=== PATIENT | female | born 1970 | race Hispanic/Latino ===

== ENCOUNTER 2017-08-28 13:47 | Inpatient (IN) | payer SELFPAY ==
[~2017-08-28] VITALS: Ht 167.6 cm; Wt 97.7 kg
[2017-08-28 14:26] LABS: BASOPHILS % (AUTO) 0.6 % (0.0-5.0); EOSINOPHILS % (AUTO) 1.4 % (0.0-8.0); HEMATOCRIT 41.1 % (36-48); LYMPHOCYTES % (AUTO) 34.2 % (21.0-51.0); MEAN CORPUSCULAR HEMOGLOBIN 28.4 pg (27.0-33.0); MEAN CORPUSCULAR HGB CONC 33.9 g/dL (32.0-36.0); MEAN CORPUSCULAR VOLUME 83.9 fL (79-99); MONOCYTES % (AUTO) 5.9 % (3.0-13.0); NEUTROPHILS % (AUTO) 57.9 % (40.0-77.0); PLATELET COUNT (AUTO) 228 K/uL (130-400); RED BLOOD CELL COUNT(AUTO) 4.89 MIL/uL (4.00-5.50); RED CELL DISTRIBUTION WIDTH 13.4 % (11.0-15.5)
[2017-08-28 14:42] LABS: ALBUMIN 3.1 g/dL (3.5-5.0); BILIRUBIN,TOTAL 0.7 mg/dL (0.2-1.0); CREATININE 0.8 mg/dL (0.5-1.5); POTASSIUM 4.1 mmol/L (3.5-5.1); TOTAL PROTEIN, SERUM 6.6 g/dL (6.0-8.3)
[2017-08-28] MEDS ORDERED: ASPIRIN 325 MG TABLET ONE (14:43)
[2017-08-28 14:50] LABS: CREATINE KINASE MB < 0.5 ng/mL (0.5-3.6); CREATINE KINASE, TOTAL 40 U/L (21-232)
[2017-08-28] MEDS ORDERED: INSULIN HUMULIN R 100 UNIT/ML 3ML ONE ×2 (16:00→16:06)
[2017-08-28 18:50] VITALS: BP 112/73
[2017-08-28 18:51] VITALS: BP 112/73
[2017-08-28] MEDS ORDERED: ONDANSETRON HCL 4 MG/2 ML VIAL ONE (19:37)
[2017-08-28] MEDS ORDERED: SODIUM CHLORIDE 0.9% 1000ML 1,000 ML IV ONE (19:39)
[2017-08-28] MEDS: SODIUM CHLORIDE 0.9% 1000ML 1,000 ML IV SCH (21:00)
[2017-08-28] MEDS: FAMOTIDINE/PF 20 MG/2 ML VIAL IV SCH (21:22)
[2017-08-28 23:00] VITALS: BP 101/70
[2017-08-28] MEDS ORDERED: GLUCAGON 1MG KIT 1 MG ML IM PRN (23:00)
[2017-08-28] MEDS ORDERED: DEXTROSE 50%-WATER 50 ML DISP.SYRIN IV PRN (23:00)
[2017-08-28] MEDS ORDERED: PROMETHAZINE HCL 25 MG/ML 1ML AMPULE IM PRN (23:00)
[2017-08-29] MEDS: INSULIN HUMULIN R 100 UNIT/ML 3ML SQ SCH ×5 (00:08→21:07)
[2017-08-29 03:00] VITALS: BP 99/65
[2017-08-29] MEDS: SODIUM CHLORIDE 0.9% 1000ML 1,000 ML IV SCH ×3 (03:36→20:21)
[2017-08-29 04:01] LABS: HEMATOCRIT 35.4 % (36-48); MEAN CORPUSCULAR HEMOGLOBIN 29.9 pg (27.0-33.0); MEAN CORPUSCULAR HGB CONC 36.1 g/dL (32.0-36.0); MEAN CORPUSCULAR VOLUME 82.8 fL (79-99); PLATELET COUNT (AUTO) 237 K/uL (130-400); RED BLOOD CELL COUNT(AUTO) 4.27 MIL/uL (4.00-5.50); RED CELL DISTRIBUTION WIDTH 13.4 % (11.0-15.5); WHITE BLOOD COUNT (AUTO) 6.8 K/uL (4.8-10.8)
[2017-08-29 04:07] LABS: ALBUMIN 2.6 g/dL (3.5-5.0); BILIRUBIN,DIRECT 0.1 mg/dL (0.0-0.3); BILIRUBIN,TOTAL 0.6 mg/dL (0.2-1.0); CREATININE 0.6 mg/dL (0.5-1.5); POTASSIUM 3.6 mmol/L (3.5-5.1); TOTAL PROTEIN, SERUM 5.7 g/dL (6.0-8.3)
[2017-08-29 08:00] VITALS: BP 91/57
[2017-08-29] MEDS: FAMOTIDINE/PF 20 MG/2 ML VIAL IV SCH ×2 (08:50→20:21)
[2017-08-29 11:02] VITALS: BP 101/62
[2017-08-29] MEDS: ONDANSETRON HCL MDV 20ML 2 MG/ML VIAL IVP PRN (13:50)
[2017-08-29] MEDS: MORPHINE SULFATE 4 MG/1ML SYG IVP PRN (13:51)
[2017-08-29 16:09] VITALS: BP 115/68
[2017-08-29] MEDS ORDERED: ACETAMINOPHEN 325 MG TAB ONE (18:36)
[2017-08-29] MEDS ORDERED: ACETAMINOPHEN 325 MG TAB PO PRN (18:45)
[2017-08-29 19:00] VITALS: BP 111/73
[2017-08-29 23:29] VITALS: BP 108/66
[2017-08-30 03:59] VITALS: BP 120/75
[2017-08-30] MEDS: SODIUM CHLORIDE 0.9% 1000ML 1,000 ML IV SCH ×2 (04:53→13:10)
[2017-08-30] MEDS: INSULIN HUMULIN R 100 UNIT/ML 3ML SQ SCH ×3 (05:54→16:45)
[2017-08-30 07:49] VITALS: BP 129/70
[2017-08-30] MEDS: FAMOTIDINE/PF 20 MG/2 ML VIAL IV SCH ×2 (09:37→20:05)
[2017-08-30 11:46] VITALS: BP 128/80
[2017-08-30] MEDS: ONDANSETRON HCL MDV 20ML 2 MG/ML VIAL IVP PRN ×2 (13:11→20:08)
[2017-08-30] MEDS: MORPHINE SULFATE 4 MG/1ML SYG IVP PRN ×2 (13:11→20:17)
[2017-08-30 13:44] LABS: AMYLASE 20 U/L (25-115); LIPASE 108 U/L (114-286)
[2017-08-30 15:57] VITALS: BP 141/80
[2017-08-30 20:00] VITALS: BP 130/72
[2017-08-31] VITALS: BP 128/74
[2017-08-31] MEDS: SODIUM CHLORIDE 0.9% 1000ML 1,000 ML IV SCH ×2 (00:24→08:57)
[2017-08-31 04:00] VITALS: BP 124/78
[2017-08-31 04:11] LABS: BASOPHILS % (AUTO) 0.4 % (0.0-5.0); EOSINOPHILS % (AUTO) 1.7 % (0.0-8.0); HEMATOCRIT 35.3 % (36-48); LYMPHOCYTES % (AUTO) 45.4 % (21.0-51.0); MEAN CORPUSCULAR HGB CONC 36.4 g/dL (32.0-36.0); MEAN CORPUSCULAR VOLUME 82.4 fL (79-99); MONOCYTES % (AUTO) 7.3 % (3.0-13.0); NEUTROPHILS % (AUTO) 45.2 % (40.0-77.0); PLATELET COUNT (AUTO) 237 K/uL (130-400); RED BLOOD CELL COUNT(AUTO) 4.28 MIL/uL (4.00-5.50); RED CELL DISTRIBUTION WIDTH 13.6 % (11.0-15.5)
[2017-08-31 04:36] LABS: CREATININE 0.7 mg/dL (0.5-1.5); POTASSIUM 3.6 mmol/L (3.5-5.1)
[2017-08-31] MEDS: INSULIN HUMULIN R 100 UNIT/ML 3ML SQ SCH ×4 (06:00→16:45)
[2017-08-31 08:00] VITALS: BP 110/72
[2017-08-31] MEDS: FAMOTIDINE/PF 20 MG/2 ML VIAL IV SCH (08:57)
[2017-08-31 11:37] VITALS: BP 118/77
[2017-08-31 16:00] VITALS: BP 148/78
== END 2017-08-31 18:45 | disposition home or self-care (01) | DRG 440 ==
LOC: EDH 13:47 → EDHIP 13:48 → 3BH 18:38
PROVIDERS: ADMIT Family Medicine; ATTEND Family Medicine
DX: K85.90 Acute pancreatitis without necrosis or infection, unspecified (principal); K76.0 Fatty (change of) liver, not elsewhere classified; E11.9 Type 2 diabetes mellitus without complications; E78.5 Hyperlipidemia, unspecified; Z79.82 Long term (current) use of aspirin; F41.1 Generalized anxiety disorder; Z82.49 Family history of ischemic heart disease and other diseases of the circulatory system; Z90.710 Acquired absence of both cervix and uterus; Z79.84 Long term (current) use of oral hypoglycemic drugs; Z90.49 Acquired absence of other specified parts of digestive tract
CPT/HCPCS: 36415; 71045; 74176; 80048; 80053; 80076; 82150; 82550; 82553; 82948; 83690; 84478; 84484; 85025; 85027; 93005; J1815; J2270; J2405; J2550; J3490; J7030

== ENCOUNTER 2018-05-01 14:25 | Emergency (ER) | payer OTHER ==
[2018-05-01] MEDS ORDERED: SODIUM CHLORIDE 0.9% 1000ML 1,000 ML IV ONE (15:23)
[2018-05-01] MEDS ORDERED: ONDANSETRON HCL 4 MG/2 ML VIAL ONE (15:23)
[2018-05-01] MEDS ORDERED: INSULIN HUMULIN R 100 UNIT/ML 3ML ONE (15:24)
[2018-05-01 15:26] LABS: BASOPHILS % (AUTO) 0.5 % (0.0-5.0); EOSINOPHILS % (AUTO) 1.4 % (0.0-8.0); HEMATOCRIT 42.9 % (36-48); MEAN CORPUSCULAR HEMOGLOBIN 28.2 pg (27.0-33.0); MEAN CORPUSCULAR HGB CONC 33.9 g/dL (32.0-36.0); MEAN CORPUSCULAR VOLUME 83.2 fL (79-99); MONOCYTES % (AUTO) 3.5 % (3.0-13.0); NEUTROPHILS % (AUTO) 51.6 % (40.0-77.0); NUCLEATED RED BLOOD CELLS 0.1 % (0.0-0.19); PLATELET COUNT (AUTO) 233 K/uL (130-400); RED BLOOD CELL COUNT(AUTO) 5.15 MIL/uL (4.00-5.50); RED CELL DISTRIBUTION WIDTH 13.5 % (11.0-15.5); WHITE BLOOD COUNT (AUTO) 6.3 K/uL (4.8-10.8)
[2018-05-01 15:38] LABS: CREATININE 0.7 mg/dL (0.5-1.5); POTASSIUM 4.2 mmol/L (3.5-5.1)
[2018-05-01 15:47] LABS: ALBUMIN 3.1 g/dL (3.5-5.0); BILIRUBIN,TOTAL 0.9 mg/dL (0.2-1.0); TOTAL PROTEIN, SERUM 6.7 g/dL (6.0-8.3)
[2018-05-01 16:36] LABS: APPEARANCE,URINE Clear (CLEAR); BILIRUBIN,URINE Negative (NEGATIVE); COLOR,URINE Yellow (YELLOW); GLUCOSE, URINE (UA) >=1000 mg/dL (NEGATIVE); KETONES,URINE Negative (NEGATIVE); LEUKOCYTE ESTERASE ,URINE Negative (NEGATIVE); NITRATE,URINE Positive (NEGATIVE); OCCULT BLOOD,URINE Negative (NEGATIVE); PROTEIN,URINE Negative (NEGATIVE); UROBILINOGEN,URINE 0.2 mg/dL (0.2-1.0)
[2018-05-01 17:12] LABS: BACTERIA,URINE Few /HPF (None Seen)
[2018-05-01 17:13] LABS: SQUAMOUS EPITHELIAL CELL,UR Moderate /HPF (0-2)
== END 2018-05-01 17:04 | disposition home or self-care (01) ==
LOC: EDH 14:25
DX: K52.9 Noninfective gastroenteritis and colitis, unspecified (principal); E11.65 Type 2 diabetes mellitus with hyperglycemia; Z90.710 Acquired absence of both cervix and uterus; Z90.49 Acquired absence of other specified parts of digestive tract
CPT/HCPCS: 36415; 80053; 81001; 82009; 82948 ×2; 83690; 84702; 85025; 87077; 87088; 87186; 87804 ×2; 96361; 96374; 96375; 99284; J1815; J2405; J7030

== ENCOUNTER → 2018-07-26 | Outpatient (CLI) | payer OTHER | END | disposition home or self-care (01) | LOC: OIH 14:46 | PROVIDERS: ATTEND Internal Medicine | DX: S42.91XA Fracture of right shoulder girdle, part unspecified, initial encounter for closed fracture (principal); M54.2 Cervicalgia; X58.XXXA Exposure to other specified factors, initial encounter; Y93.89 Activity, other specified; Y92.89 Other specified places as the place of occurrence of the external cause; Y99.8 Other external cause status | CPT/HCPCS: 72040; 73030 ==

== ENCOUNTER 2019-01-01 21:22 | Emergency (ER) | payer OTHER ==
[2019-01-01] MEDS ORDERED: SODIUM CHLORIDE 0.9% 1000ML 1,000 ML IV ONE ×2 (22:11→23:00)
[2019-01-01] MEDS ORDERED: ONDANSETRON HCL 4 MG/2 ML VIAL ONE (22:13)
[2019-01-01] MEDS ORDERED: KETOROLAC TROMETHAMINE 30MG/ML ONE (22:14)
[2019-01-01 22:22] LABS: BASOPHILS % (AUTO) 0.8 % (0.0-5.0); EOSINOPHILS % (AUTO) 2.1 % (0.0-8.0); HEMATOCRIT 41.7 % (36-48); LYMPHOCYTES % (AUTO) 37.1 % (21.0-51.0); MEAN CORPUSCULAR HEMOGLOBIN 28.1 pg (27.0-33.0); MEAN CORPUSCULAR HGB CONC 33.9 g/dL (32.0-36.0); MONOCYTES % (AUTO) 5.5 % (3.0-13.0); NEUTROPHILS % (AUTO) 54.5 % (40.0-77.0); PLATELET COUNT (AUTO) 270 K/uL (130-400); RED BLOOD CELL COUNT(AUTO) 5.02 MIL/uL (4.00-5.50); RED CELL DISTRIBUTION WIDTH 13.4 % (11.0-15.5); WHITE BLOOD COUNT (AUTO) 7.3 K/uL (4.8-10.8)
[2019-01-01 22:26] LABS: BILIRUBIN,URINE Negative (NEGATIVE); COLOR,URINE Yellow (YELLOW); GLUCOSE, URINE (UA) >=1000 mg/dL (NEGATIVE); KETONES,URINE Negative (NEGATIVE); LEUKOCYTE ESTERASE ,URINE Negative (NEGATIVE); NITRATE,URINE Negative (NEGATIVE); OCCULT BLOOD,URINE Negative (NEGATIVE); PH,URINE 5.5 (5.0-8.0); PROTEIN,URINE Negative (NEGATIVE); UROBILINOGEN,URINE 0.2 mg/dL (0.2-1.0)
[2019-01-01 22:33] LABS: APPEARANCE,URINE SLIGHTLY CLOUDY (CLEAR)
[2019-01-01 22:39] LABS: POTASSIUM 3.9 mmol/L (3.5-5.1)
[2019-01-01 22:40] LABS: BACTERIA,URINE Rare /HPF (None Seen); RBC,URINE 0-1 /HPF (0-1); WBC,URINE 0-1 /HPF (0-1); YEAST,URINE BUDDING Moderate /HPF (None Seen)
[2019-01-01 22:46] LABS: ALBUMIN 3.4 g/dL (3.5-5.0); BILIRUBIN,TOTAL 0.6 mg/dL (0.2-1.0); TOTAL PROTEIN, SERUM 7.2 g/dL (6.0-8.3)
[2019-01-01] MEDS ORDERED: INSULIN HUMULIN R 100 UNIT/ML 3ML ONE (23:03)
[2019-01-01] MEDS ORDERED: DiphenhydrAMINE HCL 50 MG/ML VIAL ONE (23:51)
== END 2019-01-02 00:12 | disposition home or self-care (01) ==
LOC: EDH 21:22
DX: E11.65 Type 2 diabetes mellitus with hyperglycemia (principal); K02.9 Dental caries, unspecified; Z90.49 Acquired absence of other specified parts of digestive tract; Z90.710 Acquired absence of both cervix and uterus
CPT/HCPCS: 36415; 80053; 81001; 82010; 82948 ×2; 83690; 85025; 87804 ×2; 96361; 96374; 96375; 99284; J1200; J1815; J1885; J2405; J7030 ×2

== ENCOUNTER 2019-03-18 02:45 | Emergency (ER) | payer OTHER ==
[2019-03-18] MEDS ORDERED: DEXAMETHASONE 4 MG TAB ONE (03:51)
[2019-03-18] MEDS ORDERED: MAG HYDROX/AL HYDROX/SIMETH ES 30 ML SUSP UDCUP ONE (03:51)
[2019-03-18] MEDS ORDERED: LIDOCAINE HCL 2% VISCOUS 15 ML UDCUP ONE (03:51)
[2019-03-18] MEDS ORDERED: ACETAMINOPHEN EXTRA STRENGTH 500 MG TABLET ONE (03:52)
[2019-03-18] MEDS ORDERED: IBUPROFEN 200 MG TAB ONE (03:52)
== END 2019-03-18 04:05 | disposition home or self-care (01) ==
LOC: EDH 02:45
DX: B34.9 Viral infection, unspecified (principal); J02.9 Acute pharyngitis, unspecified; E11.9 Type 2 diabetes mellitus without complications; Z90.49 Acquired absence of other specified parts of digestive tract; Z90.710 Acquired absence of both cervix and uterus
CPT/HCPCS: 99284; J8540

== ENCOUNTER 2019-07-14 18:49 | Inpatient (IN) | payer OTHER ==
[~2019-07-14] VITALS: Ht 157.5 cm; Wt 82.3 kg
[2019-07-14] MEDS ORDERED: ONDANSETRON HCL 4 MG/2 ML VIAL ONE (20:35)
[2019-07-14] MEDS ORDERED: LIDOCAINE HCL 2% 20ML ONE (20:35)
[2019-07-14] MEDS ORDERED: ZOSYN 3.375GM+NS 50ML 50 ML IV ONE (20:35)
[2019-07-14] MEDS ORDERED: SODIUM CHLORIDE 0.9% 1000ML 3,000 ML IV ONE (20:36)
[2019-07-14] MEDS ORDERED: MORPHINE SULFATE 4 MG/1ML SYG ONE ×2 (20:36→22:42)
[2019-07-14 20:53] LABS: BASOPHILS % (AUTO) 0.4 % (0.0-5.0); EOSINOPHILS % (AUTO) 1.3 % (0.0-8.0); HEMATOCRIT 38.1 % (36-48); LYMPHOCYTES % (AUTO) 21.9 % (21.0-51.0); MEAN CORPUSCULAR HEMOGLOBIN 27.7 pg (27.0-33.0); MEAN CORPUSCULAR HGB CONC 33.9 g/dL (32.0-36.0); MEAN CORPUSCULAR VOLUME 81.8 fL (79-99); MONOCYTES % (AUTO) 7.5 % (3.0-13.0); NEUTROPHILS % (AUTO) 68.5 % (40.0-77.0); PLATELET COUNT (AUTO) 253 K/uL (130-400); RED BLOOD CELL COUNT(AUTO) 4.66 MIL/uL (4.00-5.50); RED CELL DISTRIBUTION WIDTH 12.2 % (11.0-15.5); WHITE BLOOD COUNT (AUTO) 9.3 K/uL (4.8-10.8)
[2019-07-14] MEDS ORDERED: VANCOMYCIN 1GM+NS 250ML 250 ML IV ONE (20:59)
[2019-07-14 21:12] LABS: APPEARANCE,URINE Cloudy (CLEAR); BILIRUBIN,URINE Negative (NEGATIVE); COLOR,URINE Yellow (YELLOW); GLUCOSE, URINE (UA) >=1000 mg/dL (NEGATIVE); KETONES,URINE 15 mg/dL (NEGATIVE); LEUKOCYTE ESTERASE ,URINE Trace (NEGATIVE); NITRATE,URINE Negative (NEGATIVE); OCCULT BLOOD,URINE Negative (NEGATIVE); PROTEIN,URINE Negative (NEGATIVE)
[2019-07-14 21:19] LABS: INR 0.95 (0.85-1.15); PARTIAL THROMBOPLASTIN TIME 29.9 SEC (26.3-35.5); PROTHROMBIN TIME 10.3 SEC (9.6-11.6)
[2019-07-14] MEDS ORDERED: LIDOCAINE 1%-EPI 1:100,000 20 ML VIAL IJ ONE (21:23)
[2019-07-14 21:29] LABS: ALANINE AMINOTRANSFERASE 14 U/L (12-78); ALBUMIN 2.8 g/dL (3.5-5.0); ASPARTATE AMINOTRANSFERASE 11 U/L (10-37); BILIRUBIN,TOTAL 1.3 mg/dL (0.2-1.0); CHLORIDE 98 mmol/L (101-111); CREATINE KINASE, TOTAL 46 U/L (21-232); CREATININE 0.8 mg/dL (0.5-1.5); GLOMERULAR FILTR. RATE CALC 81 mL/min (>60); GLUCOSE,RANDOM 253 mg/dL (70-105); MYOGLOBIN 23 ng/mL (10-92); POTASSIUM 3.8 mmol/L (3.5-5.1); SODIUM SERUM 133 mmol/L (136-145); TOTAL PROTEIN, SERUM 7.1 g/dL (6.0-8.3); TROPONIN I < 0.04 ng/mL (0.00-0.06); UREA NITROGEN, BLOOD 11 mg/dL (7-18)
[2019-07-14 21:42] LABS: CARBON DIOXIDE 22 mmol/L (21-32)
[2019-07-14 21:50] LABS: BACTERIA,URINE Few /HPF (None Seen); RBC,URINE None Seen /HPF (0-1); YEAST,URINE BUDDING Few /HPF (None Seen)
[2019-07-15] MEDS ORDERED: HYDRALAZINE HCL 20 MG/ML VIAL IV PRN (00:30)
[2019-07-15] MEDS ORDERED: DIPHENHYDRAMINE HCL 25 MG CAPSULE PO PRN (00:30)
[2019-07-15] MEDS ORDERED: MORPHINE SULFATE 4 MG/1ML SYG IV PRN (00:30)
[2019-07-15] MEDS ORDERED: GUAIFENESIN-DM 200/20 MG 10 ML PO PRN (00:30)
[2019-07-15] MEDS ORDERED: POTASSIUM CHLORIDE 10% ELIXIR 20 MEQ/15 ML UDCUP PO PRN (00:30)
[2019-07-15] MEDS ORDERED: POTASSIUM CHLORIDE 20 MEQ ERTAB PO PRN (00:30)
[2019-07-15] MEDS ORDERED: ZOLPIDEM TARTRATE 5 MG TAB PO PRN (00:30)
[2019-07-15] MEDS ORDERED: MAG HYDROX/AL HYDROX/SIMETH ES 30 ML SUSP UDCUP PO PRN (00:30)
[2019-07-15] MEDS ORDERED: VANCOMYCIN PROTOCOL PER PHARMACY IV PRN (00:30)
[2019-07-15] MEDS ORDERED: LACTULOSE 20 GM/30 ML UDCUP PO PRN (00:30)
[2019-07-15] MEDS ORDERED: LIDOCAINE HCL-MPF 1% 2ML VIAL IJ PRN (00:30)
[2019-07-15] MEDS ORDERED: ACETAMINOPHEN 325 MG TAB PO PRN ×2 (00:30)
[2019-07-15] MEDS ORDERED: POTASSIUM CHLORIDE 20MEQ/100ML 100 ML IV PRN (00:30)
[2019-07-15] MEDS ORDERED: MAGNESIUM 2GM PREMIX 50ML 50 ML IV PRN (00:30)
[2019-07-15] MEDS ORDERED: DiphenhydrAMINE HCL 50 MG/ML VIAL IV PRN (00:30)
[2019-07-15] MEDS ORDERED: ONDANSETRON HCL 4 MG/2 ML VIAL IV PRN (00:30)
[2019-07-15] MEDS ORDERED: ACETAMINOPHEN-CODEINE 300/30MG TAB PO PRN (00:30)
[2019-07-15] MEDS: SODIUM CHLORIDE 0.9% 1000ML 1,000 ML IV SCH ×3 (00:54→20:54)
[2019-07-15] MEDS ORDERED: VANCOMYCIN PROTOCOL PER PHARMACY IV SCH (01:00)
[2019-07-15] MEDS ORDERED: DEXTROSE 50%-WATER 50 ML DISP.SYRIN IV PRN (01:00)
[2019-07-15] MEDS ORDERED: NITROGLYCERIN 0.4 MG SL TAB SL PRN (01:00)
[2019-07-15] MEDS: INSULIN HUMULIN R 100 UNIT/ML 3ML SQ SCH ×5 (01:00→21:00)
[2019-07-15] MEDS ORDERED: GLUCAGON 1MG KIT 1 MG ML IM PRN (01:00)
[2019-07-15] MEDS ORDERED: HYDROCODONE/ACETAMINOPHEN 5/325 MG TAB PO PRN ×2 (01:00)
[2019-07-15] MEDS ORDERED: MORPHINE SULFATE 4 MG/1ML SYG ONE (02:14)
[2019-07-15 03:14] LABS: HEMOGLOBIN A1C 9.5 % (4.0-6.0)
[2019-07-15] MEDS ORDERED: ZOSYN 3.375GM+NS 50ML 50 ML IV ONE (04:22)
[2019-07-15] MEDS ORDERED: ACETAMINOPHEN 325 MG TAB ONE (04:22)
[2019-07-15] MEDS ORDERED: ZOSYN 3.375GM+NS 50ML 50 ML IV SCH (05:00)
[2019-07-15] MEDS: ZOSYN 3.375GM+NS 50ML 50 ML IV SCH ×3 (05:00→23:29)
[2019-07-15] MEDS ORDERED: IBUPROFEN 400 MG TABLET ONE (05:23)
[2019-07-15] MEDS: IBUPROFEN 800 MG TAB PO SCH (05:30)
[2019-07-15] MEDS ORDERED: INSULIN HUMULIN R 100 UNIT/ML 3ML ONE (05:48)
[2019-07-15 06:05] LABS: HEMATOCRIT 35.1 % (36-48); MEAN CORPUSCULAR HEMOGLOBIN 27.7 pg (27.0-33.0); MEAN CORPUSCULAR VOLUME 83.8 fL (79-99); PLATELET COUNT (AUTO) 229 K/uL (130-400); RED BLOOD CELL COUNT(AUTO) 4.19 MIL/uL (4.00-5.50); RED CELL DISTRIBUTION WIDTH 12.2 % (11.0-15.5); WHITE BLOOD COUNT (AUTO) 9.4 K/uL (4.8-10.8)
[2019-07-15 06:27] LABS: ALBUMIN 2.3 g/dL (3.5-5.0); BILIRUBIN,TOTAL 1.2 mg/dL (0.2-1.0); CREATININE 0.7 mg/dL (0.5-1.5); MAGNESIUM 1.9 mg/dL (1.80-2.40); POTASSIUM 4.1 mmol/L (3.5-5.1); TOTAL PROTEIN, SERUM 5.8 g/dL (6.0-8.3)
[2019-07-15 07:18] LABS: BASOPHILS % (MANUAL) 2 % (0-2); LYMPHOCYTES % (MANUAL) 26 % (22-44); MAN.DIFF COMMENT-IMPRESSION MANUAL DIFFERENTIAL; MONOCYTES % (MANUAL) 2 % (2-9); PLATELET MORPHOLOGY COMMENT ADEQUATE; SEGMENTED NEUTROPHILS % 70 % (40-70)
[2019-07-15] MEDS ORDERED: INSULIN HUMULIN R 100 UNIT/ML 3ML SQ SCH (07:30)
[2019-07-15 08:00] VITALS: BP 97/56
[2019-07-15] MEDS ORDERED: DIATR MEGLU/DIATRIZOATE SODIUM 30 ML BOTTLE ONE (08:31)
[2019-07-15] MEDS: FAMOTIDINE/PF 20 MG/2 ML VIAL IV SCH ×2 (08:56→23:29)
[2019-07-15] MEDS: ENOXAPARIN SODIUM 30 MG/0.3 ML SQ SCH (08:56)
[2019-07-15] MEDS: MORPHINE SULFATE 4 MG/1ML SYG IV PRN (08:57)
[2019-07-15] MEDS: ONDANSETRON HCL 4 MG/2 ML VIAL IV PRN (08:57)
[2019-07-15] MEDS ORDERED: IOHEXOL-350 75 ML VIAL IV ONE (10:18)
[2019-07-15] MEDS: VANCOMYCIN 1.5 GM in SODIUM CHLORIDE 0.9% 250 ML IV SCH ×2 (10:34→23:28)
[2019-07-15] MEDS ORDERED: COMPOUND IV REFRIGERATED 1 EACH IVSOLN MISC PRN (10:45)
[2019-07-15 11:00] VITALS: BP 86/48
--- NOTE | 2019-07-15 11:20 | NUR ---
Notified Dr. Camarillo of patient's inability to drink oral contrast for CT Scan Abd/Pelvis due to nausea, vomiting. Zofran administered, however patient continues with nausea. Reported BP of 86/48, 67 hr, T98.7, patient states, feeling, "not herself", with weakness and pale skin. Received telephone order for [address] Camarillo, hold off on vancomycin administration, liver enzymes to be checked at noon. IV fluids infusing, 10 mL yellow-orange emesis to emesis bag, bed low, locked, call fang within reach. Notified CT Scan of emesis with oral contrast. Tech to bring patient down to CT Scan.
[2019-07-15 12:16] LABS: BASOPHILS % (AUTO) 0.5 % (0.0-5.0); EOSINOPHILS % (AUTO) 1.5 % (0.0-8.0); HEMATOCRIT 34.1 % (36-48); LYMPHOCYTES % (AUTO) 20.6 % (21.0-51.0); MEAN CORPUSCULAR HEMOGLOBIN 27.7 pg (27.0-33.0); MEAN CORPUSCULAR HGB CONC 33.1 g/dL (32.0-36.0); MEAN CORPUSCULAR VOLUME 83.6 fL (79-99); MONOCYTES % (AUTO) 6.8 % (3.0-13.0); NEUTROPHILS % (AUTO) 70.4 % (40.0-77.0); PLATELET COUNT (AUTO) 222 K/uL (130-400); RED BLOOD CELL COUNT(AUTO) 4.08 MIL/uL (4.00-5.50); RED CELL DISTRIBUTION WIDTH 12.2 % (11.0-15.5); WHITE BLOOD COUNT (AUTO) 8.2 K/uL (4.8-10.8)
[2019-07-15 12:56] LABS: ALBUMIN 2.1 g/dL (3.5-5.0); BILIRUBIN,TOTAL 1.3 mg/dL (0.2-1.0); CREATININE 0.7 mg/dL (0.5-1.5); POTASSIUM 3.3 mmol/L (3.5-5.1); TOTAL PROTEIN, SERUM 5.5 g/dL (6.0-8.3)
--- NOTE | 2019-07-15 13:00 | NUR ---
BP 93/60, patient states feels better, not as week and nausea has dissipated. Reminded patient to call for assistance if needs to get out of bed. Patient verbalized understanding.
--- NOTE | 2019-07-15 14:00 | NUR ---
floater in both eyes Addendum: 07/15/19 at 1416 by YANET FRANCO RN RN Amended: Links added.
--- NOTE | 2019-07-15 14:02 | NUR ---
recent yeast infections Addendum: 07/15/19 at 1416 by YANET FRANCO RN RN Amended: Links added.
[2019-07-15] MEDS ORDERED: METF500S7 PO (14:22)
[2019-07-15] MEDS ORDERED: METF-526 PO (14:23)
--- NOTE | 2019-07-15 14:28 | NUR ---
[facility] CM met with pt discussed dc plans. Pt is independent prior to admission, lives at home with parents. Denies any equipments/services. Feels safe to go back home, still drives and works. Pt is a selfpay, [facility] assisting, given Zutux packet. DC plan to home once stable. CM to cont to follow up. Addendum: 07/15/19 at 1429 by LULU SAMUELS LVN CM Amended: Links added. Addendum: 07/15/19 at 1429 by LULU SAMUELS LVN CM Amended: Links added.
[2019-07-15 16:00] VITALS: BP 92/58
[2019-07-15 20:37] VITALS: BP 95/61
[2019-07-15 23:48] VITALS: BP 107/56
[2019-07-16] VITALS (7 sets, daily range): BP systolic 93–133; BP diastolic 53–76
[2019-07-16] MEDS: DIPHENHYDRAMINE HCL 25 MG CAPSULE PO PRN ×2 (00:24→20:17)
[2019-07-16] MEDS: ZOSYN 3.375GM+NS 50ML 50 ML IV SCH ×3 (04:23→21:00)
[2019-07-16 05:21] LABS: BASOPHILS % (AUTO) 0.5 % (0.0-5.0); EOSINOPHILS % (AUTO) 3.1 % (0.0-8.0); HEMATOCRIT 30.6 % (36-48); LYMPHOCYTES % (AUTO) 34.5 % (21.0-51.0); MEAN CORPUSCULAR HEMOGLOBIN 27.6 pg (27.0-33.0); MEAN CORPUSCULAR VOLUME 83.6 fL (79-99); MONOCYTES % (AUTO) 6.3 % (3.0-13.0); NEUTROPHILS % (AUTO) 55.1 % (40.0-77.0); PLATELET COUNT (AUTO) 229 K/uL (130-400); RED BLOOD CELL COUNT(AUTO) 3.66 MIL/uL (4.00-5.50); RED CELL DISTRIBUTION WIDTH 12.3 % (11.0-15.5); WHITE BLOOD COUNT (AUTO) 6.1 K/uL (4.8-10.8)
[2019-07-16 05:47] LABS: BILIRUBIN,TOTAL 0.5 mg/dL (0.2-1.0); CREATININE 0.8 mg/dL (0.5-1.5); POTASSIUM 3.1 mmol/L (3.5-5.1); TOTAL PROTEIN, SERUM 5.4 g/dL (6.0-8.3)
[2019-07-16] MEDS: SODIUM CHLORIDE 0.9% 1000ML 1,000 ML IV SCH ×2 (05:58→16:54)
[2019-07-16] MEDS: IBUPROFEN 800 MG TAB PO SCH (05:58)
[2019-07-16] MEDS: INSULIN HUMULIN R 100 UNIT/ML 3ML SQ SCH ×4 (05:59→20:30)
[2019-07-16] MEDS: FAMOTIDINE/PF 20 MG/2 ML VIAL IV SCH ×2 (08:47→20:16)
[2019-07-16] MEDS: VANCOMYCIN 1.5 GM in SODIUM CHLORIDE 0.9% 250 ML IV SCH ×2 (08:49→20:16)
[2019-07-16] MEDS ORDERED: POTASSIUM CHLORIDE 10% ELIXIR 20 MEQ/15 ML UDCUP PO PRN (10:30)
[2019-07-16] MEDS ORDERED: LIDOCAINE HCL-MPF 1% 2ML VIAL IV PRN (10:30)
[2019-07-16] MEDS ORDERED: POTASSIUM CHLORIDE 20MEQ/100ML 100 ML IV PRN (10:30)
[2019-07-16] MEDS: ACETAMINOPHEN 325 MG TAB PO PRN (13:08)
[2019-07-16] MEDS: ENOXAPARIN SODIUM 30 MG/0.3 ML SQ SCH (13:09)
[2019-07-16] MEDS: ONDANSETRON HCL 4 MG/2 ML VIAL IV PRN ×2 (15:45→20:17)
[2019-07-16] MEDS: MORPHINE SULFATE 4 MG/1ML SYG IV PRN (15:45)
[2019-07-17] MEDS: SODIUM CHLORIDE 0.9% 1000ML 1,000 ML IV SCH ×2 (03:00→12:54)
[2019-07-17] MEDS: ONDANSETRON HCL 4 MG/2 ML VIAL IV PRN (03:00)
[2019-07-17] MEDS: MORPHINE SULFATE 4 MG/1ML SYG IV PRN ×2 (03:01→19:40)
[2019-07-17 03:40] VITALS: BP 125/70
[2019-07-17] MEDS: ZOSYN 3.375GM+NS 50ML 50 ML IV SCH ×3 (04:14→19:39)
[2019-07-17] MEDS: IBUPROFEN 800 MG TAB PO SCH (04:23)
[2019-07-17 05:38] LABS: BASOPHILS % (AUTO) 0.7 % (0.0-5.0); EOSINOPHILS % (AUTO) 1.8 % (0.0-8.0); HEMATOCRIT 34.1 % (36-48); LYMPHOCYTES % (AUTO) 21.9 % (21.0-51.0); MEAN CORPUSCULAR HEMOGLOBIN 27.5 pg (27.0-33.0); MEAN CORPUSCULAR HGB CONC 33.1 g/dL (32.0-36.0); MONOCYTES % (AUTO) 8.4 % (3.0-13.0); NEUTROPHILS % (AUTO) 66.9 % (40.0-77.0); PLATELET COUNT (AUTO) 262 K/uL (130-400); RED BLOOD CELL COUNT(AUTO) 4.11 MIL/uL (4.00-5.50); RED CELL DISTRIBUTION WIDTH 12.2 % (11.0-15.5); WHITE BLOOD COUNT (AUTO) 6.1 K/uL (4.8-10.8)
[2019-07-17 06:03] LABS: ALBUMIN 2.1 g/dL (3.5-5.0); BILIRUBIN,TOTAL 0.7 mg/dL (0.2-1.0); CREATININE 2.2 mg/dL (0.5-1.5); POTASSIUM 4.3 mmol/L (3.5-5.1); TOTAL PROTEIN, SERUM 5.9 g/dL (6.0-8.3)
[2019-07-17] MEDS: INSULIN HUMULIN R 100 UNIT/ML 3ML SQ SCH ×4 (06:28→21:02)
[2019-07-17 07:30] VITALS: BP 106/61
[2019-07-17] MEDS: VANCOMYCIN 1.5 GM in SODIUM CHLORIDE 0.9% 250 ML IV SCH (09:00)
[2019-07-17 11:00] VITALS: BP 124/78
[2019-07-17] MEDS: FAMOTIDINE/PF 20 MG/2 ML VIAL IV SCH ×2 (11:12→19:39)
[2019-07-17] MEDS: ENOXAPARIN SODIUM 30 MG/0.3 ML SQ SCH (11:13)
[2019-07-17 20:18] VITALS: BP 127/69
[2019-07-18] VITALS: BP 111/61
[2019-07-18] MEDS: IBUPROFEN 800 MG TAB PO SCH (00:44)
[2019-07-18] MEDS: SODIUM CHLORIDE 0.9% 1000ML 1,000 ML IV SCH ×2 (03:13→17:16)
[2019-07-18 04:00] VITALS: BP 133/76
[2019-07-18] MEDS: ZOSYN 3.375GM+NS 50ML 50 ML IV SCH (04:25)
[2019-07-18 06:05] LABS: BASOPHILS % (AUTO) 0.7 % (0.0-5.0); EOSINOPHILS % (AUTO) 2.3 % (0.0-8.0); HEMATOCRIT 32.4 % (36-48); LYMPHOCYTES % (AUTO) 25.4 % (21.0-51.0); MEAN CORPUSCULAR HEMOGLOBIN 27.4 pg (27.0-33.0); MEAN CORPUSCULAR HGB CONC 33.3 g/dL (32.0-36.0); MEAN CORPUSCULAR VOLUME 82.2 fL (79-99); NEUTROPHILS % (AUTO) 61.3 % (40.0-77.0); PLATELET COUNT (AUTO) 279 K/uL (130-400); RED BLOOD CELL COUNT(AUTO) 3.94 MIL/uL (4.00-5.50); RED CELL DISTRIBUTION WIDTH 12.7 % (11.0-15.5)
[2019-07-18] MEDS: INSULIN HUMULIN R 100 UNIT/ML 3ML SQ SCH ×4 (06:32→20:50)
[2019-07-18 06:35] LABS: ALBUMIN 1.9 g/dL (3.5-5.0); BILIRUBIN,TOTAL 0.5 mg/dL (0.2-1.0); CREATININE 4.2 mg/dL (0.5-1.5); POTASSIUM 3.7 mmol/L (3.5-5.1); TOTAL PROTEIN, SERUM 5.5 g/dL (6.0-8.3)
[2019-07-18 07:30] VITALS: BP 122/69
[2019-07-18] MEDS ORDERED: RENAL DOSE IV SCH (08:15)
[2019-07-18] MEDS: ENOXAPARIN SODIUM 30 MG/0.3 ML SQ SCH (09:00)
[2019-07-18] MEDS ORDERED: VANCOMYCIN 1.5 GM in SODIUM CHLORIDE 0.9% 250 ML IV SCH (09:00)
[2019-07-18] MEDS: FAMOTIDINE/PF 20 MG/2 ML VIAL IV SCH (09:00)
[2019-07-18] MEDS: MORPHINE SULFATE 4 MG/1ML SYG IV PRN ×2 (10:29→15:03)
[2019-07-18 11:00] VITALS: BP 135/77
[2019-07-18] MEDS ORDERED: DOXYCYCLINE HYCLATE 100 MG TABLET PO SCH (15:00)
[2019-07-18] MEDS: ONDANSETRON HCL 4 MG/2 ML VIAL IV PRN ×2 (15:03→20:57)
--- NOTE | 2019-07-18 15:32 | NUR ---
RD NOTIFICATION RD CONSULTS DUE TO LOW ALB OF 1.9. NO RECENT, SIGNIFICANT WEIGHT CHANGES NOTED. ALTERED NUTRITION RELATED LABS REVIEWED. NEPHROLOGY HAS BEEN CONSULTED. RIGHT BUTTOCKS ULCER NOTED. RD RECOMMENDS TO ADD RENAL NON DIALYSIS TO DIET ORDER ADD RHINA BID FOR WOUND HEALING RECOMMEND 500MG VITAMIN C BID FOR WOUND HEALING RECOMMEND 220MG ZINC SULFATE QD FOR [address] WOUND HE[address] WILL CONTINUE TO MONITOR AND FOLLOW UP, THANK YOU. Addendum: 07/18/19 at [address] Amended: Links added.
[2019-07-18 16:00] VITALS: BP 127/78
--- NOTE | 2019-07-18 17:23 | NUR ---
DISCUSSED AFTERCARE PLANS WITH DR. MCCLAIN. ARACELI HAS BEEN DCD. ORAL MEDS WILL BE LIKELY ON DC PER . James PATIENT WILL NEED RENAL FUNCTION MONITORED
[2019-07-18 20:21] VITALS: BP 139/79
[2019-07-18] MEDS: DOXYCYCLINE HYCLATE 100 MG TABLET PO SCH (20:51)
[2019-07-18 20:58] LABS: AMYLASE 25 U/L (25-115); LIPASE 187 U/L (114-286)
[2019-07-18 22:30] LABS: APPEARANCE,URINE Cloudy (CLEAR); BILIRUBIN,URINE Negative (NEGATIVE); COLOR,URINE Yellow (YELLOW); GLUCOSE, URINE (UA) Negative (NEGATIVE); KETONES,URINE Trace mg/dL (NEGATIVE); LEUKOCYTE ESTERASE ,URINE Small (NEGATIVE); NITRATE,URINE Negative (NEGATIVE); OCCULT BLOOD,URINE Negative (NEGATIVE); PH,URINE 5.5 (5.0-8.0); PROTEIN,URINE POS 2+ mg/dL (NEGATIVE)
[2019-07-18] MEDS: LACTULOSE 20 GM/30 ML UDCUP PO PRN (22:30)
[2019-07-18 22:32] LABS: SODIUM,URINE RANDOM 61 mmol/l (40-220)
[2019-07-18 23:11] LABS: BACTERIA,URINE Rare /HPF (None Seen); RBC,URINE 0-1 /HPF (0-1); YEAST,URINE BUDDING Moderate /HPF (None Seen)
[2019-07-18 23:12] LABS: SQUAMOUS EPITHELIAL CELL,UR Few /HPF (0-2)
[2019-07-18] MEDS: PROMETHAZINE HCL 25 MG/ML 1ML AMPULE IM SCH (23:53)
[2019-07-19] VITALS (7 sets, daily range): BP systolic 118–140; BP diastolic 68–84
[2019-07-19] MEDS: SODIUM CHLORIDE 0.9% 1000ML 1,000 ML IV SCH ×3 (04:17→23:16)
[2019-07-19 04:48] LABS: BASOPHILS % (AUTO) 0.6 % (0.0-5.0); EOSINOPHILS % (AUTO) 1.4 % (0.0-8.0); HEMATOCRIT 33.8 % (36-48); MEAN CORPUSCULAR HEMOGLOBIN 27.7 pg (27.0-33.0); MEAN CORPUSCULAR HGB CONC 33.1 g/dL (32.0-36.0); MEAN CORPUSCULAR VOLUME 83.5 fL (79-99); MONOCYTES % (AUTO) 8.3 % (3.0-13.0); NEUTROPHILS % (AUTO) 66.2 % (40.0-77.0); PLATELET COUNT (AUTO) 301 K/uL (130-400); RED BLOOD CELL COUNT(AUTO) 4.05 MIL/uL (4.00-5.50); RED CELL DISTRIBUTION WIDTH 12.6 % (11.0-15.5); WHITE BLOOD COUNT (AUTO) 6.3 K/uL (4.8-10.8)
[2019-07-19 05:21] LABS: BILIRUBIN,TOTAL 0.5 mg/dL (0.2-1.0); CREATININE 5.7 mg/dL (0.5-1.5); MAGNESIUM 2.5 mg/dL (1.80-2.40); PHOSPHORUS 6.1 mg/dL (2.5-4.9); POTASSIUM 4.4 mmol/L (3.5-5.1); TOTAL PROTEIN, SERUM 5.7 g/dL (6.0-8.3); URIC ACID 5.8 mg/dL (2.6-7.2)
[2019-07-19] MEDS: INSULIN HUMULIN R 100 UNIT/ML 3ML SQ SCH ×4 (06:41→21:00)
[2019-07-19] MEDS: MORPHINE SULFATE 4 MG/1ML SYG IV PRN (07:54)
[2019-07-19] MEDS ORDERED: VANCOMYCIN 1.5 GM in SODIUM CHLORIDE 0.9% 250 ML IV SCH (09:00)
[2019-07-19] MEDS: FAMOTIDINE/PF 20 MG/2 ML VIAL IV SCH (09:00)
[2019-07-19] MEDS: FOLIC ACID/VITAMIN B COMP W-C 1 CAP TAB PO SCH (09:39)
[2019-07-19] MEDS: DOXYCYCLINE HYCLATE 100 MG TABLET PO SCH ×2 (09:39→22:11)
[2019-07-19] MEDS: ENOXAPARIN SODIUM 30 MG/0.3 ML SQ SCH (09:39)
[2019-07-19] MEDS: HYDROCODONE/ACETAMINOPHEN 5/325 MG TAB PO PRN ×2 (12:55→22:11)
[2019-07-19] MEDS: PROMETHAZINE HCL 25 MG/ML 1ML AMPULE IM SCH (12:55)
[2019-07-19] MEDS: ONDANSETRON HCL 4 MG/2 ML VIAL IV PRN (15:07)
[2019-07-19] MEDS: METOCLOPRAMIDE 10 MG/2 ML VIAL IVP SCH ×2 (16:57→22:11)
[2019-07-19] MEDS: MORPHINE SULFATE 2 MG/ML 1ML SYG IVP PRN (16:59)
[2019-07-20 04:00] VITALS: BP 125/70
[2019-07-20 05:00] LABS: HEMATOCRIT 33.1 % (36-48); MEAN CORPUSCULAR HEMOGLOBIN 27.3 pg (27.0-33.0); MEAN CORPUSCULAR HGB CONC 32.9 g/dL (32.0-36.0); MEAN CORPUSCULAR VOLUME 82.8 fL (79-99); PLATELET COUNT (AUTO) 303 K/uL (130-400); WHITE BLOOD COUNT (AUTO) 6.1 K/uL (4.8-10.8)
[2019-07-20 05:17] LABS: BILIRUBIN,TOTAL 0.4 mg/dL (0.2-1.0); CREATININE 6.8 mg/dL (0.5-1.5); CRP QUANTITATIVE 64.6 mg/L (0.00-9.0); TOTAL PROTEIN, SERUM 6.2 g/dL (6.0-8.3)
[2019-07-20 05:23] LABS: BASOPHILS % (MANUAL) 1 % (0-2); EOSINOPHILS % (MANUAL) 2 % (1-6); LYMPHOCYTES % (MANUAL) 24 % (22-44); MAN.DIFF COMMENT-IMPRESSION MANUAL DIFFERENTIAL; MONOCYTES % (MANUAL) 9 % (2-9); SEGMENTED NEUTROPHILS % 64 % (40-70)
[2019-07-20] MEDS: INSULIN HUMULIN R 100 UNIT/ML 3ML SQ SCH ×4 (06:35→20:17)
[2019-07-20] MEDS: METOCLOPRAMIDE 10 MG/2 ML VIAL IVP SCH ×4 (06:40→20:10)
[2019-07-20 07:11] LABS: HEPATITIS A ANTIBODY IGM Negative (Negative); HEPATITIS B CORE IGM Negative (Negative); HEPATITIS Bs ANTIGEN SCREEN P Negative (Negative)
[2019-07-20 08:00] VITALS: BP 132/78
[2019-07-20] MEDS: ENOXAPARIN SODIUM 30 MG/0.3 ML SQ SCH (09:19)
[2019-07-20] MEDS: FAMOTIDINE/PF 20 MG/2 ML VIAL IV SCH (09:20)
[2019-07-20] MEDS: DOXYCYCLINE HYCLATE 100 MG TABLET PO SCH ×2 (09:20→16:46)
[2019-07-20] MEDS: FOLIC ACID/VITAMIN B COMP W-C 1 CAP TAB PO SCH (09:20)
[2019-07-20 11:46] VITALS: BP 127/70
[2019-07-20] MEDS: SODIUM CHLORIDE 0.9% 1000ML 1,000 ML IV SCH ×2 (12:19→20:12)
--- NOTE | 2019-07-20 15:34 | NUR ---
Pt. up to bathroom to shower and voided approx 800 cc of clear yellow urine; bladder scan 0cc
[2019-07-20 16:00] VITALS: BP 132/69
[2019-07-20 19:44] VITALS: BP 138/69
[2019-07-20] MEDS: DOXYCYCLINE 100MG+NS 250ML 250 ML IV SCH (20:12)
[2019-07-20] MEDS: MORPHINE SULFATE 2 MG/ML 1ML SYG IVP PRN (20:36)
[2019-07-21] VITALS: BP 136/71
[2019-07-21 04:00] VITALS: BP 153/90
[2019-07-21] MEDS: DOXYCYCLINE 100MG+NS 250ML 250 ML IV SCH ×2 (04:26→16:25)
[2019-07-21 05:01] LABS: BASOPHILS % (AUTO) 0.6 % (0.0-5.0); EOSINOPHILS % (AUTO) 1.9 % (0.0-8.0); HEMATOCRIT 33.6 % (36-48); LYMPHOCYTES % (AUTO) 19.3 % (21.0-51.0); MEAN CORPUSCULAR HEMOGLOBIN 27.6 pg (27.0-33.0); MEAN CORPUSCULAR VOLUME 83.6 fL (79-99); NEUTROPHILS % (AUTO) 68.6 % (40.0-77.0); PLATELET COUNT (AUTO) 322 K/uL (130-400); RED BLOOD CELL COUNT(AUTO) 4.02 MIL/uL (4.00-5.50); RED CELL DISTRIBUTION WIDTH 12.8 % (11.0-15.5); WHITE BLOOD COUNT (AUTO) 6.2 K/uL (4.8-10.8)
[2019-07-21] MEDS: SODIUM CHLORIDE 0.9% 1000ML 1,000 ML IV SCH ×2 (05:16→16:30)
[2019-07-21] MEDS: LACTULOSE 20 GM/30 ML UDCUP PO PRN ×2 (05:28→16:25)
[2019-07-21 05:30] LABS: ALBUMIN 2.1 g/dL (3.5-5.0); BILIRUBIN,TOTAL 0.4 mg/dL (0.2-1.0); CREATININE 7.7 mg/dL (0.5-1.5); POTASSIUM 3.9 mmol/L (3.5-5.1); TOTAL PROTEIN, SERUM 5.9 g/dL (6.0-8.3)
[2019-07-21] MEDS: INSULIN HUMULIN R 100 UNIT/ML 3ML SQ SCH ×4 (07:05→21:00)
[2019-07-21] MEDS: METOCLOPRAMIDE 10 MG/2 ML VIAL IVP SCH ×4 (07:13→21:17)
[2019-07-21] MEDS: BISACODYL 10 MG SUPP.RECT RC PRN (07:13)
[2019-07-21] MEDS: DOXYCYCLINE HYCLATE 100 MG TABLET PO SCH (08:04)
[2019-07-21 08:45] VITALS: BP 147/79
[2019-07-21] MEDS: FOLIC ACID/VITAMIN B COMP W-C 1 CAP TAB PO SCH (09:00)
[2019-07-21] MEDS: FAMOTIDINE/PF 20 MG/2 ML VIAL IV SCH (09:36)
[2019-07-21] MEDS: ENOXAPARIN SODIUM 30 MG/0.3 ML SQ SCH (09:38)
--- NOTE | 2019-07-21 10:00 | NUR ---
DISCUSSED CARE W RN- WOUND CARE PER FAMILY. STAFF WILL CONTINUE TO TEACH. PATIENT WITH VERY POOR RENAL FUNCTION. CM TO FOLLOW Addendum: 07/21/19 at 1427 by KANDIS CORONADO RN CM Amended: Links added.
[2019-07-21 11:29] VITALS: BP 133/75
--- NOTE | 2019-07-21 11:36 | NUR ---
PLAN OF CARE DISCUSSED WITH RN PATIENTS RENAL FUNCTION DECREASED FROM LAST REVIEW. DISPOSTION AND AFTERCARE PLANS UNCERTAIN. CM TO FOLLOW Addendum: 07/21/19 at 1138 by KANDIS CORONADO RN CM Amended: Links added.
[2019-07-21 16:38] VITALS: BP 138/76
[2019-07-21 20:17] VITALS: BP 132/72
[2019-07-22] VITALS (7 sets, daily range): BP systolic 137–175; BP diastolic 71–96
[2019-07-22 05:10] LABS: HEMATOCRIT 33.8 % (36-48); MEAN CORPUSCULAR HEMOGLOBIN 26.8 pg (27.0-33.0); MEAN CORPUSCULAR HGB CONC 32.2 g/dL (32.0-36.0); MEAN CORPUSCULAR VOLUME 83.3 fL (79-99); PLATELET COUNT (AUTO) 312 K/uL (130-400); RED BLOOD CELL COUNT(AUTO) 4.06 MIL/uL (4.00-5.50); RED CELL DISTRIBUTION WIDTH 13.1 % (11.0-15.5); WHITE BLOOD COUNT (AUTO) 6.4 K/uL (4.8-10.8)
[2019-07-22 05:27] LABS: BASOPHILS % (MANUAL) 2 % (0-2); EOSINOPHILS % (MANUAL) 2 % (1-6); LYMPHOCYTES % (MANUAL) 26 % (22-44); MAN.DIFF COMMENT-IMPRESSION MANUAL DIFFERENTIAL; MONOCYTES % (MANUAL) 12 % (2-9); PLATELET MORPHOLOGY COMMENT ADEQUATE; SEGMENTED NEUTROPHILS % 58 % (40-70)
[2019-07-22 05:30] LABS: PHOSPHORUS 6.6 mg/dL (2.5-4.9); POTASSIUM 4.2 mmol/L (3.5-5.1)
[2019-07-22] MEDS: DOXYCYCLINE 100MG+NS 250ML 250 ML IV SCH ×2 (05:35→17:43)
[2019-07-22] MEDS: METOCLOPRAMIDE 10 MG/2 ML VIAL IVP SCH ×4 (05:35→23:03)
[2019-07-22 06:21] LABS: CREATININE 8.3 mg/dL (0.5-1.5)
[2019-07-22] MEDS: INSULIN HUMULIN R 100 UNIT/ML 3ML SQ SCH ×4 (07:30→21:00)
[2019-07-22] MEDS: FAMOTIDINE/PF 20 MG/2 ML VIAL IV SCH (09:18)
[2019-07-22] MEDS: FOLIC ACID/VITAMIN B COMP W-C 1 CAP TAB PO SCH (09:18)
[2019-07-22] MEDS: ENOXAPARIN SODIUM 30 MG/0.3 ML SQ SCH (09:27)
--- NOTE | 2019-07-22 11:48 | NUR ---
RD FOLLOW UP PO INTAKE IS POOR (25%). LABS REVIEWED (BUN 49, CRE 8.3, GFR 5, P 6.6, ALB 2.1). MEDS REVIEWED. GLUTEAL ABSCESS NOTED. NO URGENT DIALYSIS NEEDED AT THIS TIME, PER MD RECOMMENDATIONS. DIET: CCD, HEART HEALTHY, RHINA BID. RD RECOMMENDS TO ADD RENAL NON DIALYSIS TO DIET ORDER ADD NEPRO SUPP. QD, DUE TO POOR PO INTAKE RECOMMEND 500MG VITAMIN C BID - AID WOUND HEALING RECOMMEND 220MG ZINC SULFATE QD FOR 14 DAYS - AID WOUND HEALING CONTINUE RHINA BID - AID WOUND HEALING RD WILL CONTINUE TO MONITOR AND FOLLOW UP, THANK YOU.
[2019-07-22 15:13] LABS: APPEARANCE,URINE Clear (CLEAR); BILIRUBIN,URINE Negative (NEGATIVE); COLOR,URINE Yellow (YELLOW); GLUCOSE, URINE (UA) Negative (NEGATIVE); KETONES,URINE Trace mg/dL (NEGATIVE); LEUKOCYTE ESTERASE ,URINE Negative (NEGATIVE); NITRATE,URINE Negative (NEGATIVE); OCCULT BLOOD,URINE Negative (NEGATIVE); PH,URINE 5.5 (5.0-8.0); PROTEIN,URINE POS 1+ mg/dL (NEGATIVE); UROBILINOGEN,URINE 0.2 mg/dL (0.2-1.0)
[2019-07-22 15:27] LABS: RBC,URINE 0-1 /HPF (0-1); WBC,URINE 0-1 /HPF (0-1)
[2019-07-22 15:28] LABS: BACTERIA,URINE Few /HPF (None Seen)
[2019-07-22] MEDS ORDERED: AMLODIPINE BESYLATE 5 MG TAB PO SCH (16:30)
[2019-07-22] MEDS: CALCIUM ACETATE 667 MG CAPSULE PO SCH (17:00)
[2019-07-22] MEDS: SODIUM BICARBONATE 650 MG TAB PO SCH (23:07)
[2019-07-23 04:04] VITALS: BP 143/76
[2019-07-23 05:10] LABS: MEAN CORPUSCULAR HEMOGLOBIN 27.6 pg (27.0-33.0); MEAN CORPUSCULAR HGB CONC 33.1 g/dL (32.0-36.0); MEAN CORPUSCULAR VOLUME 83.1 fL (79-99); PLATELET COUNT (AUTO) 333 K/uL (130-400); RED BLOOD CELL COUNT(AUTO) 4.21 MIL/uL (4.00-5.50); RED CELL DISTRIBUTION WIDTH 13.3 % (11.0-15.5); WHITE BLOOD COUNT (AUTO) 6.8 K/uL (4.8-10.8)
[2019-07-23] MEDS: DOXYCYCLINE 100MG+NS 250ML 250 ML IV SCH ×2 (05:34→17:13)
[2019-07-23 05:36] LABS: ALBUMIN 2.2 g/dL (3.5-5.0); BILIRUBIN,TOTAL 0.5 mg/dL (0.2-1.0); MAGNESIUM 2.1 mg/dL (1.80-2.40); PHOSPHORUS 7.3 mg/dL (2.5-4.9); POTASSIUM 4.2 mmol/L (3.5-5.1); TOTAL PROTEIN, SERUM 6.2 g/dL (6.0-8.3); URIC ACID 8.5 mg/dL (2.6-7.2)
[2019-07-23] MEDS: INSULIN HUMULIN R 100 UNIT/ML 3ML SQ SCH ×4 (05:39→21:00)
[2019-07-23 06:04] LABS: CREATININE 8.8 mg/dL (0.5-1.5)
[2019-07-23 07:30] VITALS: BP 148/85
[2019-07-23] MEDS: SODIUM BICARBONATE 650 MG TAB PO SCH ×3 (08:24→22:10)
[2019-07-23] MEDS: FOLIC ACID/VITAMIN B COMP W-C 1 CAP TAB PO SCH (08:24)
[2019-07-23] MEDS: CALCIUM ACETATE 667 MG CAPSULE PO SCH ×3 (08:24→17:14)
[2019-07-23] MEDS: AMLODIPINE BESYLATE 5 MG TAB PO SCH (08:25)
[2019-07-23] MEDS: FAMOTIDINE/PF 20 MG/2 ML VIAL IV SCH (08:25)
[2019-07-23] MEDS: ENOXAPARIN SODIUM 30 MG/0.3 ML SQ SCH (08:26)
[2019-07-23] MEDS ORDERED: ONDANSETRON HCL 4 MG/2 ML VIAL IVP PRN (08:45)
--- NOTE | 2019-07-23 10:11 | NUR ---
REC'D NEW ORDERS FROM DR JEAN FOR INSERTION OF PERMACATH FOR HD AND FIRST HD SESSION TODAY, WELL FIRST TIME HD LABS NOW, AND CBC, BMP FOR TOMORROW. NOTIFIED LUIS OF CENTRAL SCHEDULING AND DAVE FROM HD OF NEW ORDERS. PRIMARY NURSE MARGO ALSO MADE AWARE.
[2019-07-23 10:49] LABS: HEMOGLOBIN A1C 11.8 % (4.0-6.0)
[2019-07-23 11:00] VITALS: BP 155/94
[2019-07-23] MEDS: METOCLOPRAMIDE 10 MG/2 ML VIAL IVP SCH ×4 (11:14→22:11)
[2019-07-23 11:25] LABS: CHOLESTEROL 148 mg/dL (<200); HDL CHOLESTEROL 82 mg/dL (35-85); LDL DIRECT 104 mg/dL (0-99); TRIGLYCERIDES 121 mg/dL (30-200)
[2019-07-23 11:34] LABS: INR 0.99 (0.85-1.15); PARTIAL THROMBOPLASTIN TIME 32.5 SEC (26.3-35.5); PROTHROMBIN TIME 10.7 SEC (9.6-11.6)
[2019-07-23 11:48] LABS: % IRON SATURATION 19.1 % (22-44)
[2019-07-23 16:00] VITALS: BP 156/88
[2019-07-23] MEDS: ACETAMINOPHEN 325 MG TAB PO PRN (17:15)
[2019-07-23 19:57] VITALS: BP 162/90
[2019-07-23 23:20] VITALS: BP 144/77
[2019-07-24 04:35] VITALS: BP 146/87
[2019-07-24 05:34] LABS: HEMATOCRIT 33.1 % (36-48); MEAN CORPUSCULAR HEMOGLOBIN 26.8 pg (27.0-33.0); MEAN CORPUSCULAR HGB CONC 32.3 g/dL (32.0-36.0); PLATELET COUNT (AUTO) 322 K/uL (130-400); RED BLOOD CELL COUNT(AUTO) 3.99 MIL/uL (4.00-5.50); RED CELL DISTRIBUTION WIDTH 13.6 % (11.0-15.5); WHITE BLOOD COUNT (AUTO) 5.6 K/uL (4.8-10.8)
[2019-07-24] MEDS: DOXYCYCLINE 100MG+NS 250ML 250 ML IV SCH ×2 (05:36→17:11)
[2019-07-24 05:49] LABS: POTASSIUM 4.3 mmol/L (3.5-5.1)
[2019-07-24 06:00] LABS: CREATININE 9.2 mg/dL (0.5-1.5)
[2019-07-24 06:09] LABS: HEPATITIS Bs ANTIGEN SCREEN P Negative (Negative)
[2019-07-24] MEDS: INSULIN HUMULIN R 100 UNIT/ML 3ML SQ SCH ×4 (06:14→21:00)
[2019-07-24] MEDS: METOCLOPRAMIDE 10 MG/2 ML VIAL IVP SCH ×4 (06:36→23:10)
[2019-07-24 08:00] VITALS: BP 153/90
[2019-07-24] MEDS: CALCIUM ACETATE 667 MG CAPSULE PO SCH ×3 (08:00→17:10)
[2019-07-24] MEDS: FOLIC ACID/VITAMIN B COMP W-C 1 CAP TAB PO SCH (08:45)
[2019-07-24] MEDS: SODIUM BICARBONATE 650 MG TAB PO SCH ×3 (08:45→23:10)
[2019-07-24] MEDS: AMLODIPINE BESYLATE 5 MG TAB PO SCH (08:45)
[2019-07-24] MEDS: FAMOTIDINE/PF 20 MG/2 ML VIAL IV SCH (11:45)
[2019-07-24 11:49] VITALS: BP 157/78
[2019-07-24] MEDS ORDERED: LIDOCAINE HCL 1% MDV 50ML VIAL ONE (14:53)
[2019-07-24 16:00] VITALS: BP 148/80
[2019-07-24 19:59] VITALS: BP 168/88
[2019-07-24 23:41] VITALS: BP 144/80
[2019-07-25 03:59] VITALS: BP 141/88
[2019-07-25] MEDS: DOXYCYCLINE 100MG+NS 250ML 250 ML IV SCH ×2 (05:20→16:48)
[2019-07-25 06:20] LABS: CREATININE 6.9 mg/dL (0.5-1.5); POTASSIUM 3.6 mmol/L (3.5-5.1)
[2019-07-25] MEDS: METOCLOPRAMIDE 10 MG/2 ML VIAL IVP SCH ×4 (07:30→22:17)
[2019-07-25] MEDS: INSULIN HUMULIN R 100 UNIT/ML 3ML SQ SCH ×4 (07:30→21:00)
[2019-07-25 08:00] VITALS: BP 148/84
[2019-07-25] MEDS: CALCIUM ACETATE 667 MG CAPSULE PO SCH ×3 (08:00→16:48)
[2019-07-25] MEDS: AMLODIPINE BESYLATE 5 MG TAB PO SCH (09:00)
[2019-07-25] MEDS: ENOXAPARIN SODIUM 30 MG/0.3 ML SQ SCH (09:00)
[2019-07-25] MEDS: FOLIC ACID/VITAMIN B COMP W-C 1 CAP TAB PO SCH (09:35)
[2019-07-25] MEDS: ONDANSETRON HCL 4 MG/2 ML VIAL IVP PRN (09:36)
[2019-07-25] MEDS: SODIUM BICARBONATE 650 MG TAB PO SCH ×2 (09:36→21:00)
[2019-07-25] MEDS: FAMOTIDINE/PF 20 MG/2 ML VIAL IV SCH (09:36)
--- NOTE | 2019-07-25 10:48 | NUR ---
RD FOLLOW UP Diet: NPO at this time. Pt scheduled for HD catheter placement, and start HD. Labs and meds reviewed. Buttocks ulcer noted. RD recommends to advance diet when medically feasible to Renal dialysis Add Nepro oral supp. to support wound healing Recommend Vitamin C and zinc sulfate for wound healing Monitor po intake and tolerance RD will continue to monitor and follow up, thank you.
[2019-07-25 12:00] VITALS: BP 149/79
--- NOTE | 2019-07-25 13:00 | NUR ---
PT DIALYZED 1.3 L. OUT TOLERATED WELL, MILD SYMPTOMS OF NAUSEA.
[2019-07-25] MEDS ORDERED: HEPARIN SODIUM/PF 100UNIT/ML 5ML SYRINGE IV SCH (13:15)
[2019-07-25 16:00] VITALS: BP 139/86
[2019-07-25 20:00] VITALS: BP 138/75
[2019-07-26] VITALS (7 sets, daily range): BP systolic 133–151; BP diastolic 71–88
[2019-07-26] MEDS: DOXYCYCLINE 100MG+NS 250ML 250 ML IV SCH ×2 (04:24→18:24)
[2019-07-26 05:03] LABS: HEMATOCRIT 32.8 % (36-48); MEAN CORPUSCULAR HEMOGLOBIN 26.8 pg (27.0-33.0); MEAN CORPUSCULAR HGB CONC 32.6 g/dL (32.0-36.0); MEAN CORPUSCULAR VOLUME 82.2 fL (79-99); PLATELET COUNT (AUTO) 310 K/uL (130-400); RED BLOOD CELL COUNT(AUTO) 3.99 MIL/uL (4.00-5.50); RED CELL DISTRIBUTION WIDTH 13.4 % (11.0-15.5); WHITE BLOOD COUNT (AUTO) 7.2 K/uL (4.8-10.8)
[2019-07-26 05:15] LABS: BAND NEUTROPHILS % (MANUAL) 2 % (0-2); EOSINOPHILS % (MANUAL) 2 % (1-6); LYMPHOCYTES % (MANUAL) 26 % (22-44); MAN.DIFF COMMENT-IMPRESSION MANUAL DIFFERENTIAL; MONOCYTES % (MANUAL) 2 % (2-9); SEGMENTED NEUTROPHILS % 68 % (40-70)
[2019-07-26 05:16] LABS: CREATININE 5.3 mg/dL (0.5-1.5); MAGNESIUM 1.8 mg/dL (1.80-2.40); PHOSPHORUS 5.1 mg/dL (2.5-4.9); PLATELET MORPHOLOGY COMMENT ADEQUATE; POTASSIUM 3.6 mmol/L (3.5-5.1)
[2019-07-26] MEDS: INSULIN HUMULIN R 100 UNIT/ML 3ML SQ SCH ×4 (06:22→21:00)
[2019-07-26] MEDS: CALCIUM ACETATE 667 MG CAPSULE PO SCH ×3 (08:00→18:24)
[2019-07-26] MEDS: ASCORBIC ACID 500 MG TAB PO SCH (09:00)
--- NOTE | 2019-07-26 11:19 | NUR ---
Gastroparesis Medical Nutrition Therapy Pt on contact precautions at this time. RD consulted for Gastroparesis nutritional recommendations. Started on Dialysis, tolerating well. Gastroparesis nutritional recommendations: listed below >RD recommends to add 6 small meals/d to diet order >Add 75gmccd to diet order >Add low fat and low fiber to diet order, in order to improve the timing of gastric emptying >Pt may be able to tolerate liquids better compared to solid foods; ask the pt what is preferred >Offer Nepro supplements as needed
[2019-07-26 11:28] LABS: ALBUMIN 2.7 g/dL (3.5-5.0); BILIRUBIN,DIRECT 0.2 mg/dL (0.0-0.3); BILIRUBIN,TOTAL 0.7 mg/dL (0.2-1.0); TOTAL PROTEIN, SERUM 6.8 g/dL (6.0-8.3)
[2019-07-26] MEDS: AMLODIPINE BESYLATE 5 MG TAB PO SCH (13:32)
[2019-07-26] MEDS: FOLIC ACID/VITAMIN B COMP W-C 1 CAP TAB PO SCH (13:32)
[2019-07-26] MEDS: SODIUM BICARBONATE 650 MG TAB PO SCH ×2 (13:32→21:58)
[2019-07-26] MEDS: FAMOTIDINE/PF 20 MG/2 ML VIAL IV SCH (13:33)
[2019-07-26] MEDS: ZINC SULFATE 220 CAPSULE PO SCH (13:33)
[2019-07-26] MEDS: METOCLOPRAMIDE 10 MG/2 ML VIAL IVP SCH (18:24)
--- NOTE | 2019-07-26 19:45 | NUR ---
PM Assessment Received pt sited on the bedside chair, routine assessment done, plan of care discuss, made aware scheduled again for dialysis in AM. Pt currently denies discomfort.
--- NOTE | 2019-07-26 19:54 | NUR ---
ASK MIRANDA IF HE WANTS TO ORDER OUTPATIENT DIALYSIS SET UP SO THE CASE MANAGEMENT WILL START THE PROCESS. HE VERBALIZED NOT AT THIS POINT AND TO HAVE DIALYSIS FOR THE PATIENT TOMORROW.
[2019-07-26] MEDS: ENOXAPARIN SODIUM 30 MG/0.3 ML SQ SCH (21:59)
[2019-07-27 03:10] VITALS: BP 151/85
[2019-07-27 06:17] LABS: HEMATOCRIT 32.4 % (36-48); MEAN CORPUSCULAR HEMOGLOBIN 27.4 pg (27.0-33.0); MEAN CORPUSCULAR VOLUME 83.1 fL (79-99); PLATELET COUNT (AUTO) 273 K/uL (130-400); RED CELL DISTRIBUTION WIDTH 13.4 % (11.0-15.5); WHITE BLOOD COUNT (AUTO) 6.6 K/uL (4.8-10.8)
[2019-07-27] MEDS: METOCLOPRAMIDE 10 MG/2 ML VIAL IVP SCH ×2 (06:46→16:59)
[2019-07-27] MEDS: DOXYCYCLINE 100MG+NS 250ML 250 ML IV SCH ×2 (06:46→16:58)
[2019-07-27 06:53] LABS: CREATININE 5.7 mg/dL (0.5-1.5); POTASSIUM 3.5 mmol/L (3.5-5.1)
[2019-07-27] MEDS: INSULIN HUMULIN R 100 UNIT/ML 3ML SQ SCH ×4 (07:16→21:00)
[2019-07-27 08:00] VITALS: BP 166/84
[2019-07-27] MEDS: CALCIUM ACETATE 667 MG CAPSULE PO SCH ×3 (08:00→17:00)
[2019-07-27] MEDS: ASCORBIC ACID 500 MG TAB PO SCH ×2 (09:00→09:11)
[2019-07-27] MEDS: AMLODIPINE BESYLATE 5 MG TAB PO SCH ×2 (09:00→09:11)
[2019-07-27] MEDS: FOLIC ACID/VITAMIN B COMP W-C 1 CAP TAB PO SCH ×2 (09:00→09:11)
[2019-07-27] MEDS: FAMOTIDINE/PF 20 MG/2 ML VIAL IV SCH ×2 (09:00→09:11)
[2019-07-27] MEDS: ENOXAPARIN SODIUM 30 MG/0.3 ML SQ SCH ×2 (09:00→09:12)
[2019-07-27] MEDS: SODIUM BICARBONATE 650 MG TAB PO SCH ×3 (09:00→19:48)
[2019-07-27] MEDS: ZINC SULFATE 220 CAPSULE PO SCH ×2 (09:00→09:11)
[2019-07-27] MEDS ORDERED: HEPARIN SODIUM 5000UNIT/ML 1ML VIAL ONE (09:52)
[2019-07-27 10:09] LABS: EOSINOPHILS % (MANUAL) 1 % (1-6); LYMPHOCYTES % (MANUAL) 28 % (22-44); MAN.DIFF COMMENT-IMPRESSION MANUAL DIFFERENTIAL; MONOCYTES % (MANUAL) 3 % (2-9); PLATELET MORPHOLOGY COMMENT DECREASED; SEGMENTED NEUTROPHILS % 68 % (40-70)
[2019-07-27 12:00] VITALS: BP 151/87
[2019-07-27] MEDS ORDERED: SODIUM CHLORIDE 0.9% 1000ML 1,000 ML IV PRN (12:45)
[2019-07-27] MEDS ORDERED: 0.9% SODIUM CHLORIDE 1000 ML IV BAG IV PRN (12:45)
[2019-07-27] MEDS ORDERED: ACETAMINOPHEN 325 MG TAB PO PRN (12:45)
[2019-07-27] MEDS ORDERED: LIDOCAINE HCL-MPF 1% 2ML VIAL IJ PRN (12:45)
[2019-07-27] MEDS ORDERED: HEPARIN SODIUM 5000UNIT/ML 1ML VIAL IJ PRN ×2 (12:45)
[2019-07-27] MEDS ORDERED: NITROGLYCERIN 0.4 MG SL TAB SL PRN (12:45)
[2019-07-27 16:00] VITALS: BP 162/90
[2019-07-27] MEDS: LACTATED RINGERS 1000ML 1,000 ML IV SCH ×2 (16:59→21:43)
[2019-07-27] MEDS: ACETAMINOPHEN 325 MG TAB PO PRN (17:06)
[2019-07-27 19:10] VITALS: BP 161/84
[2019-07-28] VITALS (7 sets, daily range): BP systolic 142–160; BP diastolic 71–85
[2019-07-28] MEDS: DOXYCYCLINE 100MG+NS 250ML 250 ML IV SCH ×2 (04:24→16:59)
[2019-07-28] MEDS: INSULIN HUMULIN R 100 UNIT/ML 3ML SQ SCH ×4 (05:57→20:50)
[2019-07-28 06:11] LABS: BASOPHILS % (AUTO) 0.7 % (0.0-5.0); HEMATOCRIT 33.4 % (36-48); LYMPHOCYTES % (AUTO) 21.5 % (21.0-51.0); MEAN CORPUSCULAR HEMOGLOBIN 27.4 pg (27.0-33.0); MEAN CORPUSCULAR HGB CONC 33.2 g/dL (32.0-36.0); MEAN CORPUSCULAR VOLUME 82.5 fL (79-99); MONOCYTES % (AUTO) 7.6 % (3.0-13.0); NEUTROPHILS % (AUTO) 66.8 % (40.0-77.0); PLATELET COUNT (AUTO) 264 K/uL (130-400); RED BLOOD CELL COUNT(AUTO) 4.05 MIL/uL (4.00-5.50); RED CELL DISTRIBUTION WIDTH 13.1 % (11.0-15.5); WHITE BLOOD COUNT (AUTO) 8.2 K/uL (4.8-10.8)
[2019-07-28 06:20] LABS: CREATININE 4.1 mg/dL (0.5-1.5); POTASSIUM 3.3 mmol/L (3.5-5.1)
[2019-07-28] MEDS: ASCORBIC ACID 500 MG TAB PO SCH (10:29)
[2019-07-28] MEDS: FOLIC ACID/VITAMIN B COMP W-C 1 CAP TAB PO SCH (10:29)
[2019-07-28] MEDS: CALCIUM ACETATE 667 MG CAPSULE PO SCH ×3 (10:29→17:00)
[2019-07-28] MEDS: SODIUM BICARBONATE 650 MG TAB PO SCH ×2 (10:29→21:33)
[2019-07-28] MEDS: FAMOTIDINE/PF 20 MG/2 ML VIAL IV SCH (10:29)
[2019-07-28] MEDS: METOCLOPRAMIDE 10 MG/2 ML VIAL IVP SCH ×3 (10:29→17:00)
[2019-07-28] MEDS: ZINC SULFATE 220 CAPSULE PO SCH (10:29)
[2019-07-28] MEDS: AMLODIPINE BESYLATE 5 MG TAB PO SCH (10:29)
[2019-07-28] MEDS: ENOXAPARIN SODIUM 30 MG/0.3 ML SQ SCH (10:30)
[2019-07-28] MEDS: LACTATED RINGERS 1000ML 1,000 ML IV SCH (17:03)
[2019-07-29 04:00] VITALS: BP 150/81
[2019-07-29] MEDS: LACTATED RINGERS 1000ML 1,000 ML IV SCH ×2 (04:03→16:48)
[2019-07-29] MEDS: ONDANSETRON HCL 4 MG/2 ML VIAL IVP PRN ×2 (04:13→16:46)
[2019-07-29] MEDS: DOXYCYCLINE 100MG+NS 250ML 250 ML IV SCH ×2 (04:31→16:48)
[2019-07-29 05:33] LABS: CREATININE 4.4 mg/dL (0.5-1.5); MAGNESIUM 1.7 mg/dL (1.80-2.40); PHOSPHORUS 4.9 mg/dL (2.5-4.9)
[2019-07-29 06:45] LABS: BASOPHILS % (AUTO) 0.9 % (0.0-5.0); EOSINOPHILS % (AUTO) 2.7 % (0.0-8.0); HEMATOCRIT 33.3 % (36-48); LYMPHOCYTES % (AUTO) 23.2 % (21.0-51.0); MEAN CORPUSCULAR HEMOGLOBIN 27.8 pg (27.0-33.0); MEAN CORPUSCULAR HGB CONC 32.4 g/dL (32.0-36.0); MEAN CORPUSCULAR VOLUME 85.6 fL (79-99); MONOCYTES % (AUTO) 7.8 % (3.0-13.0); NEUTROPHILS % (AUTO) 65.1 % (40.0-77.0); PLATELET COUNT (AUTO) 198 K/uL (130-400); RED BLOOD CELL COUNT(AUTO) 3.89 MIL/uL (4.00-5.50); RED CELL DISTRIBUTION WIDTH 13.1 % (11.0-15.5)
[2019-07-29] MEDS: INSULIN HUMULIN R 100 UNIT/ML 3ML SQ SCH ×4 (07:30→20:04)
[2019-07-29 07:31] VITALS: BP 141/76
[2019-07-29] MEDS: CALCIUM ACETATE 667 MG CAPSULE PO SCH ×3 (08:00→17:00)
[2019-07-29] MEDS: SODIUM BICARBONATE 650 MG TAB PO SCH ×2 (09:00→21:08)
[2019-07-29] MEDS: FOLIC ACID/VITAMIN B COMP W-C 1 CAP TAB PO SCH (09:00)
[2019-07-29] MEDS: ASCORBIC ACID 500 MG TAB PO SCH (09:00)
[2019-07-29] MEDS: ZINC SULFATE 220 CAPSULE PO SCH (09:00)
[2019-07-29] MEDS: METOCLOPRAMIDE 10 MG/2 ML VIAL IVP SCH ×3 (09:09→16:46)
[2019-07-29] MEDS: FAMOTIDINE/PF 20 MG/2 ML VIAL IV SCH (09:09)
--- NOTE | 2019-07-29 09:09 | NUR ---
Patient refused to take medications at this time stating she's worried that she'll throw them up. Explained to patient that zofran was administered at 4:00 hour by production supervisor off shift. Swallowed amlodipine PO, and started to dry heave. Will administer IV medications and attempt to administer remainder of PO medications at a later time. Patient verbalized understanding.
[2019-07-29] MEDS: AMLODIPINE BESYLATE 5 MG TAB PO SCH (09:11)
[2019-07-29] MEDS: ENOXAPARIN SODIUM 30 MG/0.3 ML SQ SCH (09:12)
[2019-07-29 10:39] VITALS: BP 150/87
--- NOTE | 2019-07-29 11:30 | NUR ---
Administered Reglan IV Push. Offered to administer scheduled morning medications as patient shows no symptoms of nausea at this time, sleeping quietly. Patient requested I bring PO medications at a later time.
[2019-07-29 15:54] VITALS: BP 147/95
[2019-07-29 19:00] VITALS: BP 134/82
[2019-07-29 23:00] VITALS: BP 133/76
[2019-07-30] MEDS: DIPHENHYDRAMINE HCL 25 MG CAPSULE PO PRN (00:10)
[2019-07-30 03:00] VITALS: BP 141/73
[2019-07-30] MEDS: LACTATED RINGERS 1000ML 1,000 ML IV SCH ×2 (03:40→18:31)
[2019-07-30] MEDS: ONDANSETRON HCL 4 MG/2 ML VIAL IVP PRN ×2 (04:30→16:31)
[2019-07-30 04:32] LABS: HEMATOCRIT 31.6 % (36-48); MEAN CORPUSCULAR HEMOGLOBIN 27.5 pg (27.0-33.0); MEAN CORPUSCULAR HGB CONC 33.5 g/dL (32.0-36.0); MEAN CORPUSCULAR VOLUME 81.9 fL (79-99); PLATELET COUNT (AUTO) 208 K/uL (130-400); RED BLOOD CELL COUNT(AUTO) 3.86 MIL/uL (4.00-5.50); RED CELL DISTRIBUTION WIDTH 12.6 % (11.0-15.5); WHITE BLOOD COUNT (AUTO) 6.6 K/uL (4.8-10.8)
[2019-07-30] MEDS: DOXYCYCLINE 100MG+NS 250ML 250 ML IV SCH (04:38)
[2019-07-30 04:48] LABS: ALBUMIN 2.6 g/dL (3.5-5.0); BILIRUBIN,TOTAL 0.8 mg/dL (0.2-1.0); CREATININE 2.8 mg/dL (0.5-1.5); MAGNESIUM 1.7 mg/dL (1.80-2.40); PHOSPHORUS 3.5 mg/dL (2.5-4.9); POTASSIUM 3.4 mmol/L (3.5-5.1); TOTAL PROTEIN, SERUM 6.3 g/dL (6.0-8.3)
[2019-07-30 05:01] LABS: BAND NEUTROPHILS % (MANUAL) 3 % (0-2); BASOPHILS % (MANUAL) 3 % (0-2); EOSINOPHILS % (MANUAL) 4 % (1-6); LYMPHOCYTES % (MANUAL) 30 % (22-44); MAN.DIFF COMMENT-IMPRESSION MANUAL DIFFERENTIAL; MONOCYTES % (MANUAL) 7 % (2-9); REACTIVE LYMPHOCYTES 1 % (0-0); SEGMENTED NEUTROPHILS % 52 % (40-70)
[2019-07-30] MEDS: INSULIN HUMULIN R 100 UNIT/ML 3ML SQ SCH ×4 (06:23→21:00)
[2019-07-30] MEDS: METOCLOPRAMIDE 10 MG/2 ML VIAL IVP SCH ×3 (07:30→16:31)
[2019-07-30 08:00] VITALS: BP 136/70
[2019-07-30] MEDS: CALCIUM ACETATE 667 MG CAPSULE PO SCH ×3 (08:00→17:00)
[2019-07-30] MEDS: ZINC SULFATE 220 CAPSULE PO SCH (09:00)
[2019-07-30] MEDS: ASCORBIC ACID 500 MG TAB PO SCH (09:00)
[2019-07-30] MEDS: SODIUM BICARBONATE 650 MG TAB PO SCH ×2 (09:00→20:25)
[2019-07-30] MEDS: ENOXAPARIN SODIUM 30 MG/0.3 ML SQ SCH (09:00)
[2019-07-30] MEDS: AMLODIPINE BESYLATE 5 MG TAB PO SCH (09:00)
[2019-07-30] MEDS: FOLIC ACID/VITAMIN B COMP W-C 1 CAP TAB PO SCH (09:00)
--- NOTE | 2019-07-30 09:00 | NUR ---
PT IS NPO FOR NOW FOR A G.L STUDY, PT ALSO HAS PERMACATHETER SITE TO HER RT UPPER CHEST AND IS BLEEDING . A SM PRESSURE DRSG APPLICATION ON. OVER THE DIALYSIS DRSG,, ALSO HAS REDNESS AND SORENESS . TO HER RT AND LT SIDE OF ABD. PT STATED THAT ITS WHERE THEY HAD GIVEN HER THE LOVENOX INJECTIONS.
[2019-07-30 11:34] VITALS: BP 142/78
[2019-07-30] MEDS: FAMOTIDINE/PF 20 MG/2 ML VIAL IV SCH (11:48)
[2019-07-30 16:00] VITALS: BP 150/84
--- NOTE | 2019-07-30 16:25 | NUR ---
BACK FROM THE G.I. STUDIES DENIES ANY DISCOMFORT.
[2019-07-30 19:00] VITALS: BP 148/78
[2019-07-30 23:00] VITALS: BP 153/80
--- NOTE | 2019-07-31 00:10 | NUR ---
Nursing Note Received Report from Shreyas MALDONADO at 001
[2019-07-31 03:00] VITALS: BP 155/85
[2019-07-31 05:44] LABS: BASOPHILS % (AUTO) 0.7 % (0.0-5.0); EOSINOPHILS % (AUTO) 3.1 % (0.0-8.0); MEAN CORPUSCULAR HEMOGLOBIN 26.7 pg (27.0-33.0); MEAN CORPUSCULAR HGB CONC 32.7 g/dL (32.0-36.0); MEAN CORPUSCULAR VOLUME 81.7 fL (79-99); MONOCYTES % (AUTO) 9.5 % (3.0-13.0); NEUTROPHILS % (AUTO) 65.3 % (40.0-77.0); PLATELET COUNT (AUTO) 199 K/uL (130-400); RED BLOOD CELL COUNT(AUTO) 4.04 MIL/uL (4.00-5.50); RED CELL DISTRIBUTION WIDTH 12.7 % (11.0-15.5); WHITE BLOOD COUNT (AUTO) 7.1 K/uL (4.8-10.8)
[2019-07-31 06:16] LABS: ALBUMIN 2.8 g/dL (3.5-5.0); BILIRUBIN,TOTAL 0.9 mg/dL (0.2-1.0); CREATININE 3.7 mg/dL (0.5-1.5); POTASSIUM 3.4 mmol/L (3.5-5.1); TOTAL PROTEIN, SERUM 6.7 g/dL (6.0-8.3)
[2019-07-31 07:30] VITALS: BP 167/94
[2019-07-31] MEDS: INSULIN HUMULIN R 100 UNIT/ML 3ML SQ SCH ×4 (07:30→21:00)
--- NOTE | 2019-07-31 09:56 | NUR ---
DR. SAM WAS CALLED , REGARDING OF DIALYSIS TREATMENT FOR TODAY ,DR Lisandra COLMENARES HOLD DIALYSIS TREATMENT.
[2019-07-31] MEDS: FOLIC ACID/VITAMIN B COMP W-C 1 CAP TAB PO SCH (10:36)
[2019-07-31] MEDS: FAMOTIDINE/PF 20 MG/2 ML VIAL IV SCH (10:36)
[2019-07-31] MEDS: AMLODIPINE BESYLATE 5 MG TAB PO SCH (10:36)
[2019-07-31] MEDS: ZINC SULFATE 220 CAPSULE PO SCH (10:36)
[2019-07-31] MEDS: SODIUM BICARBONATE 650 MG TAB PO SCH ×2 (10:36→19:42)
[2019-07-31] MEDS: ASCORBIC ACID 500 MG TAB PO SCH (10:36)
[2019-07-31] MEDS: METOCLOPRAMIDE 10 MG/2 ML VIAL IVP SCH ×3 (10:36→18:03)
[2019-07-31] MEDS: CALCIUM ACETATE 667 MG CAPSULE PO SCH ×3 (10:37→17:00)
[2019-07-31] MEDS: ENOXAPARIN SODIUM 30 MG/0.3 ML SQ SCH (10:38)
[2019-07-31 11:00] VITALS: BP 141/93
[2019-07-31] MEDS: ONDANSETRON HCL 4 MG/2 ML VIAL IVP PRN (11:10)
--- NOTE | 2019-07-31 12:45 | NUR ---
RD FOLLOW UP NOTE Pt with Renal Dialysis diet in place. Dialysis received X6 at time of screen. Pt with Nausea, pending Gastric Emptying test. Recommend to add Ensure Clear BID with breakfast and dinner. Monitored labs: K 3.4, BUN 27, Cr 3.7, GFR 14, BG 114. RD to continue to monitor. Please notify RD as additional nutrition concerns arise. Thank you. Addendum: 08/01/19 at [address] Amended: Links added.
[2019-07-31 16:08] VITALS: BP 154/93
[2019-07-31] MEDS: LACTATED RINGERS 1000ML 1,000 ML IV SCH ×2 (18:02→19:40)
[2019-07-31] MEDS: DOXYCYCLINE 100MG+NS 250ML 250 ML IV SCH (18:27)
[2019-07-31 19:40] VITALS: BP 152/77
[2019-07-31 23:27] VITALS: BP 148/81
[2019-08-01 03:25] VITALS: BP 151/86
[2019-08-01 05:30] LABS: BASOPHILS % (AUTO) 0.7 % (0.0-5.0); EOSINOPHILS % (AUTO) 3.2 % (0.0-8.0); LYMPHOCYTES % (AUTO) 25.6 % (21.0-51.0); MEAN CORPUSCULAR HEMOGLOBIN 27.3 pg (27.0-33.0); MEAN CORPUSCULAR VOLUME 82.5 fL (79-99); MONOCYTES % (AUTO) 8.9 % (3.0-13.0); NEUTROPHILS % (AUTO) 61.3 % (40.0-77.0); PLATELET COUNT (AUTO) 216 K/uL (130-400); RED CELL DISTRIBUTION WIDTH 12.7 % (11.0-15.5); WHITE BLOOD COUNT (AUTO) 6.9 K/uL (4.8-10.8)
[2019-08-01] MEDS: DOXYCYCLINE 100MG+NS 250ML 250 ML IV SCH ×2 (05:42→06:43)
[2019-08-01] MEDS: INSULIN HUMULIN R 100 UNIT/ML 3ML SQ SCH ×4 (05:42→21:00)
[2019-08-01 06:01] LABS: ALBUMIN 2.9 g/dL (3.5-5.0); BILIRUBIN,TOTAL 0.8 mg/dL (0.2-1.0); CREATININE 3.5 mg/dL (0.5-1.5); MAGNESIUM 1.4 mg/dL (1.80-2.40); PHOSPHORUS 3.9 mg/dL (2.5-4.9); TOTAL PROTEIN, SERUM 6.4 g/dL (6.0-8.3)
[2019-08-01] MEDS: METOCLOPRAMIDE 10 MG/2 ML VIAL IVP SCH (06:43)
[2019-08-01 07:30] VITALS: BP 133/64
[2019-08-01] MEDS: CALCIUM ACETATE 667 MG CAPSULE PO SCH ×3 (08:00→17:00)
[2019-08-01] MEDS: ASCORBIC ACID 500 MG TAB PO SCH (09:00)
[2019-08-01] MEDS: SODIUM BICARBONATE 650 MG TAB PO SCH ×2 (09:00→20:45)
[2019-08-01] MEDS: LACTATED RINGERS 1000ML 1,000 ML IV SCH ×2 (09:00→22:20)
[2019-08-01] MEDS: AMLODIPINE BESYLATE 5 MG TAB PO SCH (09:00)
[2019-08-01] MEDS: FOLIC ACID/VITAMIN B COMP W-C 1 CAP TAB PO SCH (09:00)
[2019-08-01] MEDS: ZINC SULFATE 220 CAPSULE PO SCH (09:00)
[2019-08-01 11:00] VITALS: BP 144/85
[2019-08-01] MEDS ORDERED: POTASSIUM CHLORIDE 20 MEQ ERTAB PO SCH (14:45)
[2019-08-01] MEDS: ONDANSETRON 4 MG TABLET PO SCH ×2 (15:45→21:45)
[2019-08-01] MEDS ORDERED: PANTOPRAZOLE SODIUM 40 MG TABLET.DR PO SCH (15:45)
[2019-08-01 16:00] VITALS: BP 145/75
[2019-08-01] MEDS: METOCLOPRAMIDE 5 MG TABLET PO SCH (17:00)
--- NOTE | 2019-08-01 18:00 | NUR ---
PT . NAUSEA THUR OUT THE DAY. PT STATED THAT EVERY TIME SHE GETS HER DOXYCYLINE MEDICATION IV , SHE HAS NOT BE ABLE TO TASTE, OR EAT WELL , NAUSEA AND VOMITING SMAMT. DOXYCYLINE MEDICATION WAS DC ,AND WAS NOT ABLE TO GIVE ANY PO MEDICATION FOR NOW ,DUE TO FEELING NAUSEA AND WANTED TO WAIT UNTIL SHE FEEL BETTER ,PT . UNABLE TO GIVE TH K-DUR,PO DUE NAUSEA AND WILL TRY LATER , WAS ALSO ABLE TO START A PIV TO HER RAC ,UNDER ASPECT TECH , WITH GOOD BLOOD RETURN NOTED, ATTEMPTS X 2 , . CALL LIGHT INREACH,
[2019-08-01] MEDS: ENOXAPARIN SODIUM 30 MG/0.3 ML SQ SCH (18:12)
[2019-08-01 20:00] VITALS: BP 150/94
[2019-08-01] MEDS: PANTOPRAZOLE SODIUM 40 MG TABLET.DR PO SCH (20:45)
[2019-08-02] VITALS (7 sets, daily range): BP systolic 156–168; BP diastolic 83–94
[2019-08-02] MEDS: ONDANSETRON 4 MG TABLET PO SCH ×4 (03:45→21:37)
[2019-08-02] MEDS ORDERED: HYDRALAZINE HCL 20 MG/ML VIAL IV PRN (04:00)
--- NOTE | 2019-08-02 04:31 | NUR ---
PT REFUSES ZOFRAN PILL AND REFUSED POTASSIUM 20 MEQ
--- NOTE | 2019-08-02 04:33 | NUR ---
HYDRALAZINE 10 MG GIVEN MD ORDERED
[2019-08-02 05:06] LABS: HEMATOCRIT 34.7 % (36-48); MEAN CORPUSCULAR HEMOGLOBIN 26.5 pg (27.0-33.0); MEAN CORPUSCULAR HGB CONC 32.9 g/dL (32.0-36.0); MEAN CORPUSCULAR VOLUME 80.7 fL (79-99); PLATELET COUNT (AUTO) 192 K/uL (130-400); RED CELL DISTRIBUTION WIDTH 12.7 % (11.0-15.5); WHITE BLOOD COUNT (AUTO) 6.5 K/uL (4.8-10.8)
[2019-08-02 05:27] LABS: BILIRUBIN,TOTAL 0.9 mg/dL (0.2-1.0); CREATININE 3.5 mg/dL (0.5-1.5); MAGNESIUM 1.4 mg/dL (1.80-2.40); PHOSPHORUS 4.1 mg/dL (2.5-4.9); POTASSIUM 3.2 mmol/L (3.5-5.1); TOTAL PROTEIN, SERUM 6.6 g/dL (6.0-8.3)
[2019-08-02] MEDS: INSULIN HUMULIN R 100 UNIT/ML 3ML SQ SCH ×4 (07:09→21:00)
[2019-08-02] MEDS: CALCIUM ACETATE 667 MG CAPSULE PO SCH ×3 (08:00→16:53)
[2019-08-02] MEDS: FOLIC ACID/VITAMIN B COMP W-C 1 CAP TAB PO SCH (09:00)
[2019-08-02] MEDS: ZINC SULFATE 220 CAPSULE PO SCH (09:00)
[2019-08-02] MEDS: PANTOPRAZOLE SODIUM 40 MG TABLET.DR PO SCH ×2 (09:00→21:31)
[2019-08-02] MEDS: ENOXAPARIN SODIUM 30 MG/0.3 ML SQ SCH (09:00)
[2019-08-02] MEDS: ASCORBIC ACID 500 MG TAB PO SCH (09:00)
[2019-08-02] MEDS: AMLODIPINE BESYLATE 5 MG TAB PO SCH (09:00)
[2019-08-02] MEDS: SODIUM BICARBONATE 650 MG TAB PO SCH ×2 (09:00→21:31)
[2019-08-02] MEDS: METOCLOPRAMIDE 5 MG TABLET PO SCH ×3 (09:54→16:53)
[2019-08-02] MEDS: LACTATED RINGERS 1000ML 1,000 ML IV SCH (11:40)
--- NOTE | 2019-08-02 16:30 | NUR ---
DR MIRANDA JEAN CAME IN TO SEE PATIENT AND SAID THAT DIALYSIS HAS BEEN DISCONTINUED AND PREPARE FOR POSSIBLE REMOVAL OF PERMACATH IN AM.
[2019-08-03] VITALS (8 sets, daily range): BP systolic 96–166; BP diastolic 50–89
[2019-08-03 04:56] LABS: HEMATOCRIT 35.1 % (36-48); MEAN CORPUSCULAR HEMOGLOBIN 26.8 pg (27.0-33.0); MEAN CORPUSCULAR HGB CONC 33.6 g/dL (32.0-36.0); MEAN CORPUSCULAR VOLUME 79.6 fL (79-99); PLATELET COUNT (AUTO) 177 K/uL (130-400); RED BLOOD CELL COUNT(AUTO) 4.41 MIL/uL (4.00-5.50); RED CELL DISTRIBUTION WIDTH 12.9 % (11.0-15.5)
[2019-08-03 05:03] LABS: CREATININE 3.3 mg/dL (0.5-1.5); MAGNESIUM 1.4 mg/dL (1.80-2.40); POTASSIUM 3.3 mmol/L (3.5-5.1)
[2019-08-03 06:11] LABS: BAND NEUTROPHILS % (MANUAL) 1 % (0-2); BASOPHILS % (MANUAL) 1 % (0-2); EOSINOPHILS % (MANUAL) 2 % (1-6); LYMPHOCYTES % (MANUAL) 24 % (22-44); MAN.DIFF COMMENT-IMPRESSION MANUAL DIFFERENTIAL; MONOCYTES % (MANUAL) 8 % (2-9); SEGMENTED NEUTROPHILS % 64 % (40-70)
[2019-08-03 06:12] LABS: PLATELET MORPHOLOGY COMMENT ADEQUATE
[2019-08-03] MEDS: ONDANSETRON 4 MG TABLET PO SCH ×2 (06:55→11:20)
[2019-08-03] MEDS: INSULIN HUMULIN R 100 UNIT/ML 3ML SQ SCH ×4 (07:30→20:43)
[2019-08-03] MEDS: CALCIUM ACETATE 667 MG CAPSULE PO SCH ×3 (08:00→17:00)
[2019-08-03] MEDS: PANTOPRAZOLE SODIUM 40 MG TABLET.DR PO SCH ×3 (09:00→21:00)
[2019-08-03] MEDS: SODIUM BICARBONATE 650 MG TAB PO SCH ×3 (09:00→21:00)
[2019-08-03] MEDS: AMLODIPINE BESYLATE 5 MG TAB PO SCH (09:00)
[2019-08-03] MEDS: ENOXAPARIN SODIUM 30 MG/0.3 ML SQ SCH (09:00)
[2019-08-03] MEDS: ZINC SULFATE 220 CAPSULE PO SCH (09:00)
[2019-08-03] MEDS: ASCORBIC ACID 500 MG TAB PO SCH (09:00)
[2019-08-03] MEDS: FOLIC ACID/VITAMIN B COMP W-C 1 CAP TAB PO SCH (11:20)
[2019-08-03] MEDS: METOCLOPRAMIDE 5 MG TABLET PO SCH (11:20)
[2019-08-03] MEDS ORDERED: ONDANSETRON HCL 4 MG/2 ML VIAL IVP PRN (12:15)
[2019-08-03] MEDS: METOCLOPRAMIDE 10 MG/2 ML VIAL IVP SCH ×2 (12:35→17:00)
[2019-08-03] MEDS: LACTATED RINGERS 1000ML 1,000 ML IV SCH ×2 (12:44→14:20)
--- NOTE | 2019-08-03 13:45 | NUR ---
DR. DEWAYNE NAJERA MD HERE TO SEE PATIENT. STATES THAT BECAUSE PATIENT STILL EXPERIENCING PERSISTENT NAUSEA, PATIENT SHOULD STAY ANOTHER DAY TO MONITOR. INFORMED THAT DR. JEAN SPOKE TO PATIENT ABOUT POSSIBLY STOPPING HEMODIALYSIS AND REMOVE PERMACATH PRIOR TO DISCHARGE. DR. DEWAYNE NAJERA REPLIED THAT PATIENT DOES NOT HAVE TO RECEIVE HEMODIALYSIS TODAY.
[2019-08-03] MEDS: HYDROCODONE/ACETAMINOPHEN 5/325 MG TAB PO PRN (20:52)
[2019-08-04] MEDS: LACTATED RINGERS 1000ML 1,000 ML IV SCH ×3 (03:40→20:12)
[2019-08-04 03:55] VITALS: BP 151/93
[2019-08-04 05:19] LABS: POTASSIUM 3.4 mmol/L (3.5-5.1)
[2019-08-04] MEDS: INSULIN HUMULIN R 100 UNIT/ML 3ML SQ SCH ×4 (05:51→20:15)
[2019-08-04] MEDS: METOCLOPRAMIDE 10 MG/2 ML VIAL IVP SCH ×3 (07:43→16:27)
[2019-08-04] MEDS: CALCIUM ACETATE 667 MG CAPSULE PO SCH ×2 (08:00→12:00)
[2019-08-04 08:37] VITALS: BP 168/98
[2019-08-04] MEDS: AMLODIPINE BESYLATE 5 MG TAB PO SCH (09:00)
[2019-08-04] MEDS: SODIUM BICARBONATE 650 MG TAB PO SCH (09:00)
[2019-08-04] MEDS: PANTOPRAZOLE SODIUM 40 MG TABLET.DR PO SCH ×2 (09:00→20:12)
[2019-08-04] MEDS: FOLIC ACID/VITAMIN B COMP W-C 1 CAP TAB PO SCH (09:00)
[2019-08-04] MEDS: ENOXAPARIN SODIUM 30 MG/0.3 ML SQ SCH (09:00)
[2019-08-04] MEDS: ASCORBIC ACID 500 MG TAB PO SCH (09:00)
[2019-08-04] MEDS: ZINC SULFATE 220 CAPSULE PO SCH (09:00)
--- NOTE | 2019-08-04 09:00 | NUR ---
PATIENT IS UNABLE TO TAKE PO MEDICATION DUE TO NAUSEA
[2019-08-04] MEDS: ONDANSETRON HCL 4 MG/2 ML VIAL IVP SCH ×3 (10:56→20:12)
[2019-08-04] MEDS ORDERED: LORAZEPAM 2 MG/ML 1 ML VIAL IVP SCH (11:30)
[2019-08-04 13:19] VITALS: BP 166/90
[2019-08-04 16:50] VITALS: BP 178/99
[2019-08-04] MEDS: BISACODYL 10 MG SUPP.RECT RC PRN (20:12)
[2019-08-04 20:19] VITALS: BP 169/93
[2019-08-04 23:39] VITALS: BP 141/91
[2019-08-05 03:32] VITALS: BP 143/82
[2019-08-05] MEDS: ONDANSETRON HCL 4 MG/2 ML VIAL IVP SCH ×4 (03:33→21:37)
[2019-08-05 05:27] LABS: BASOPHILS % (AUTO) 1.3 % (0.0-5.0); EOSINOPHILS % (AUTO) 4.8 % (0.0-8.0); HEMATOCRIT 33.8 % (36-48); LYMPHOCYTES % (AUTO) 16.8 % (21.0-51.0); MEAN CORPUSCULAR HEMOGLOBIN 26.5 pg (27.0-33.0); MEAN CORPUSCULAR HGB CONC 32.2 g/dL (32.0-36.0); MEAN CORPUSCULAR VOLUME 82.2 fL (79-99); MONOCYTES % (AUTO) 13.1 % (3.0-13.0); NEUTROPHILS % (AUTO) 63.6 % (40.0-77.0); PLATELET COUNT (AUTO) 141 K/uL (130-400); RED BLOOD CELL COUNT(AUTO) 4.11 MIL/uL (4.00-5.50); WHITE BLOOD COUNT (AUTO) 5.4 K/uL (4.8-10.8)
[2019-08-05 05:53] LABS: CREATININE 2.9 mg/dL (0.5-1.5); PHOSPHORUS 3.9 mg/dL (2.5-4.9); POTASSIUM 3.1 mmol/L (3.5-5.1)
[2019-08-05] MEDS: METOCLOPRAMIDE 10 MG/2 ML VIAL IVP SCH ×3 (06:29→11:09)
[2019-08-05] MEDS: INSULIN HUMULIN R 100 UNIT/ML 3ML SQ SCH ×4 (06:29→20:40)
[2019-08-05 07:30] VITALS: BP 146/82
[2019-08-05] MEDS: ASCORBIC ACID 500 MG TAB PO SCH ×2 (08:12→08:16)
[2019-08-05] MEDS: PANTOPRAZOLE SODIUM 40 MG TABLET.DR PO SCH ×3 (08:12→20:36)
[2019-08-05] MEDS: AMLODIPINE BESYLATE 5 MG TAB PO SCH ×2 (08:12→08:16)
[2019-08-05] MEDS: FOLIC ACID/VITAMIN B COMP W-C 1 CAP TAB PO SCH ×2 (08:12→08:16)
[2019-08-05] MEDS: ENOXAPARIN SODIUM 30 MG/0.3 ML SQ SCH ×2 (08:13→08:16)
--- NOTE | 2019-08-05 09:50 | NUR ---
ANTICIPATING DC TODYA WHEN CLEARED BY NEPHRO Addendum: 08/05/19 at 0950 by KANDIS CORONADO RN CM Amended: Links added.
[2019-08-05 11:00] VITALS: BP 145/81
--- NOTE | 2019-08-05 11:30 | NUR ---
MEDS PATIENT HAS BEEN REFUSING HER MEDICATIONS. DR. JEAN HAS BEEN MADE AWARE. PENDING GI CONSULT.
--- NOTE | 2019-08-05 13:58 | NUR ---
TO CT PATIENT IS BEING TRANSPORTED TO CT SCAN PER DR. RODRIGUEZ'S ORDERS. SHE IS IN STABLE CONDITION.
[2019-08-05] MEDS: MAGNESIUM 2GM PREMIX 50ML 50 ML IV SCH (14:15)
--- NOTE | 2019-08-05 14:45 | NUR ---
PIERRE FOLLOW UP NOTE PT CONTINUES WITH NAUSEA AND VOMITING. PT CURRENTLY PENDING CT SCAN. RECOMMEND 30ML PROMOD TID. ZOFRAN IN PLACE. HX OF GASTROPARESIS. PIERRE TO CONTINUE TO MONITOR. Addendum: 08/05/19 at [address] Amended: Links added.
[2019-08-05 16:00] VITALS: BP 172/94
[2019-08-05 18:33] LABS: AMYLASE 55 U/L (25-115)
[2019-08-05 18:40] LABS: LIPASE 633 U/L (114-286)
--- NOTE | 2019-08-05 19:30 | NUR ---
patient refuses Lovenox Addendum: 08/05/19 at 2305 by FABRIZIO YANEZ RN RN Amended: Links added.
[2019-08-05 20:00] VITALS: BP 167/98
[2019-08-06] VITALS (12 sets, daily range): BP systolic 115–158; BP diastolic 71–89
[2019-08-06] MEDS: ONDANSETRON HCL 4 MG/2 ML VIAL IVP SCH ×4 (04:27→21:22)
[2019-08-06] MEDS: ACETAMINOPHEN 325 MG TAB PO PRN ×2 (04:32→18:12)
[2019-08-06 06:23] LABS: HEMATOCRIT 36.7 % (36-48); MEAN CORPUSCULAR HGB CONC 33.5 g/dL (32.0-36.0); MEAN CORPUSCULAR VOLUME 80.5 fL (79-99); PLATELET COUNT (AUTO) 140 K/uL (130-400); RED BLOOD CELL COUNT(AUTO) 4.56 MIL/uL (4.00-5.50); RED CELL DISTRIBUTION WIDTH 13.1 % (11.0-15.5); WHITE BLOOD COUNT (AUTO) 6.7 K/uL (4.8-10.8)
[2019-08-06] MEDS: INSULIN HUMULIN R 100 UNIT/ML 3ML SQ SCH ×4 (06:34→21:00)
[2019-08-06 06:44] LABS: BILIRUBIN,TOTAL 1.1 mg/dL (0.2-1.0); CREATININE 2.9 mg/dL (0.5-1.5); MAGNESIUM 1.5 mg/dL (1.80-2.40); PHOSPHORUS 2.9 mg/dL (2.5-4.9); TOTAL PROTEIN, SERUM 6.9 g/dL (6.0-8.3)
[2019-08-06 06:48] LABS: POTASSIUM 2.8 mmol/L (3.5-5.1)
[2019-08-06 07:04] LABS: BASOPHILS % (MANUAL) 1 % (0-2); EOSINOPHILS % (MANUAL) 5 % (1-6); LYMPHOCYTES % (MANUAL) 12 % (22-44); MAN.DIFF COMMENT-IMPRESSION MANUAL DIFFERENTIAL; MONOCYTES % (MANUAL) 12 % (2-9); PLATELET MORPHOLOGY COMMENT ADEQUATE; SEGMENTED NEUTROPHILS % 70 % (40-70)
[2019-08-06] MEDS: MAGNESIUM 2GM PREMIX 50ML 50 ML IV SCH (07:38)
[2019-08-06] MEDS: METOCLOPRAMIDE 10 MG/2 ML VIAL IVP SCH ×3 (07:44→18:09)
[2019-08-06] MEDS ORDERED: POTASSIUM CHLORIDE 20 MEQ ERTAB PO SCH (08:15)
[2019-08-06] MEDS: ENOXAPARIN SODIUM 30 MG/0.3 ML SQ SCH (09:00)
[2019-08-06 09:53] LABS: AMYLASE 50 U/L (25-115); LIPASE 516 U/L (114-286)
[2019-08-06] MEDS: LIDOCAINE HCL-MPF 1% 2ML VIAL IV PRN (10:39)
[2019-08-06] MEDS: POTASSIUM CHLORIDE 20MEQ/100ML 100 ML IV PRN (10:39)
--- NOTE | 2019-08-06 11:17 | NUR ---
RD UPDATE PT PENDING PERM-A-CATH REMOVAL, PER MD NOTE. PT ON CONTACT ISOLATION. ATTEMPT TO CONTACT VIA PHONE, PT IN PROCEDURE. PT CONTINUES WITH NAUSEA, HOWEVER IMPROVING PER EMR. PO INTAKE 25%, ENSURE CLEAR BID, PROMOD TID IN PLACE. PT ALSO WITH ZOFRAN AND REGLAN MEDICATIONS IN PLACE. RD TO CONTINUE TO MONITOR. PLEASE NOTIFY ADDITIONAL NUTRITION CONCERNS ARISE.
--- NOTE | 2019-08-06 11:35 | NUR ---
RT PERMACATH REMOVAL AT BEDSIDE PER DR AMADOR. TIMEOUT PERFORMED PRIOR TO START OF PROCEDURE. CATHETER AND RT CHEST AREA PREPPED. CATHETER REMOVED INTACT. MANUAL PRESSURE APPLIED TO SITE X 10MIN. PT TOLERATED WELL. NO BLEEDING OR HEMATOMA NOTED TO SITE. 4X4 AND OPSITE DRESSING APPLIED TO SITE. NO COMPLAINTS FROM PT. CATHETER TIP COLLECTED AND SENT FOR C&S. CXR ORDERED. REPORT GIVEN TO PRIMARY NURSE SCHUYLER MALDONADO.
[2019-08-06] MEDS: FOLIC ACID/VITAMIN B COMP W-C 1 CAP TAB PO SCH (12:12)
[2019-08-06] MEDS: AMLODIPINE BESYLATE 5 MG TAB PO SCH (12:13)
[2019-08-06] MEDS: ASCORBIC ACID 500 MG TAB PO SCH (12:13)
[2019-08-06] MEDS: PANTOPRAZOLE SODIUM 40 MG TABLET.DR PO SCH ×2 (12:13→21:19)
[2019-08-06] MEDS: LACTATED RINGERS 1000ML 1,000 ML IV SCH (16:07)
--- NOTE | 2019-08-06 16:30 | NUR ---
CALL RADIOLOGY ATTEMPTED TO CONTACT RADIOLOGY REGARDING CT OF THE HEAD/BRAIN THAT WAS DONE YESTERDAY AND HAS NOT BEEN READ REQUESTED BY DR. RODRIGUEZ. NO ANSWER, UNABLE TO LEAVE MESSAGE.
[2019-08-06 17:38] LABS: CREATININE 2.7 mg/dL (0.5-1.5); MAGNESIUM 2.1 mg/dL (1.80-2.40); POTASSIUM 3.1 mmol/L (3.5-5.1)
[2019-08-07] VITALS (7 sets, daily range): BP systolic 137–169; BP diastolic 68–94
[2019-08-07] MEDS: ONDANSETRON HCL 4 MG/2 ML VIAL IVP SCH ×4 (04:18→19:59)
[2019-08-07 05:33] LABS: HEMATOCRIT 33.8 % (36-48); MEAN CORPUSCULAR HEMOGLOBIN 26.7 pg (27.0-33.0); MEAN CORPUSCULAR HGB CONC 32.8 g/dL (32.0-36.0); MEAN CORPUSCULAR VOLUME 81.4 fL (79-99); PLATELET COUNT (AUTO) 123 K/uL (130-400); RED BLOOD CELL COUNT(AUTO) 4.15 MIL/uL (4.00-5.50); WHITE BLOOD COUNT (AUTO) 5.2 K/uL (4.8-10.8)
[2019-08-07 05:54] LABS: CREATININE 2.6 mg/dL (0.5-1.5); MAGNESIUM 1.8 mg/dL (1.80-2.40)
[2019-08-07] MEDS: INSULIN HUMULIN R 100 UNIT/ML 3ML SQ SCH ×4 (06:52→20:01)
[2019-08-07] MEDS: METOCLOPRAMIDE 10 MG/2 ML VIAL IVP SCH ×3 (06:52→17:39)
[2019-08-07] MEDS: ASCORBIC ACID 500 MG TAB PO SCH (09:00)
[2019-08-07] MEDS: AMLODIPINE BESYLATE 5 MG TAB PO SCH (09:00)
[2019-08-07] MEDS: FOLIC ACID/VITAMIN B COMP W-C 1 CAP TAB PO SCH (09:00)
[2019-08-07] MEDS: PANTOPRAZOLE SODIUM 40 MG TABLET.DR PO SCH ×2 (09:00→20:01)
[2019-08-07] MEDS: ENOXAPARIN SODIUM 30 MG/0.3 ML SQ SCH (10:21)
[2019-08-07] MEDS: LACTATED RINGERS 1000ML 1,000 ML IV SCH (11:40)
[2019-08-07] MEDS: POTASSIUM CHLORIDE 20MEQ/100ML 100 ML IV PRN (14:09)
[2019-08-07] MEDS: POTASSIUM CHLORIDE 20 MEQ ERTAB PO PRN (14:10)
[2019-08-07] MEDS: MAGNESIUM 2GM PREMIX 50ML 50 ML IV SCH (18:23)
[2019-08-07] MEDS: INSULIN GLARGINE 100 UNITS/ML 10 ML VIAL SQ SCH (20:01)
--- NOTE | 2019-08-07 22:37 | NUR ---
PATIENT STATES SHE HAS NOT BEEN EATING AND THAT SHE HAD 1 EPISODE OF VOMITING TODAY. PM LANTUS DOSE NOT ADMINISTERED D/T GLUCOSE OF 143 mg/dl. WILL CONT TO MONITOR GLUCOSE CLOSELY. PATIENT REFUSED PO PROTONIX WELL. PATIENT IS TO BE NPO AFTER MN FOR SCHEDULED EGD TOMORROW WITH DR. SCHMIDT.
[2019-08-08] VITALS (20 sets, daily range): BP systolic 118–160; BP diastolic 61–89
[2019-08-08] MEDS: LACTATED RINGERS 1000ML 1,000 ML IV SCH ×2 (01:00→17:25)
[2019-08-08] MEDS: ONDANSETRON HCL 4 MG/2 ML VIAL IVP SCH ×4 (02:06→22:13)
[2019-08-08 04:36] LABS: BASOPHILS % (AUTO) 1.1 % (0.0-5.0); EOSINOPHILS % (AUTO) 9.8 % (0.0-8.0); HEMATOCRIT 31.6 % (36-48); LYMPHOCYTES % (AUTO) 23.8 % (21.0-51.0); MEAN CORPUSCULAR HEMOGLOBIN 27.2 pg (27.0-33.0); MEAN CORPUSCULAR HGB CONC 33.5 g/dL (32.0-36.0); MONOCYTES % (AUTO) 16.7 % (3.0-13.0); NEUTROPHILS % (AUTO) 48.1 % (40.0-77.0); PLATELET COUNT (AUTO) 138 K/uL (130-400); WHITE BLOOD COUNT (AUTO) 3.8 K/uL (4.8-10.8)
[2019-08-08 05:10] LABS: CREATININE 2.5 mg/dL (0.5-1.5); MAGNESIUM 2.1 mg/dL (1.80-2.40); POTASSIUM 3.1 mmol/L (3.5-5.1)
[2019-08-08] MEDS: INSULIN HUMULIN R 100 UNIT/ML 3ML SQ SCH ×4 (05:39→21:00)
[2019-08-08] MEDS: ASCORBIC ACID 500 MG TAB PO SCH (09:00)
[2019-08-08] MEDS: ENOXAPARIN SODIUM 30 MG/0.3 ML SQ SCH (09:00)
[2019-08-08] MEDS ORDERED: MIDAZOLAM HCL 1 MG/ML 2ML VIAL ONE (09:33)
[2019-08-08] MEDS ORDERED: PROPOFOL 10 MG/ML 20ML VIAL IV ONE ×2 (09:33→09:42)
[2019-08-08] MEDS ORDERED: LIDOCAINE HCL 1% 20 ML VIAL ONE (09:34)
[2019-08-08] MEDS: METOCLOPRAMIDE 10 MG/2 ML VIAL IVP SCH ×3 (11:30→17:24)
[2019-08-08] MEDS: FOLIC ACID/VITAMIN B COMP W-C 1 CAP TAB PO SCH (11:37)
[2019-08-08] MEDS: PANTOPRAZOLE SODIUM 40 MG TABLET.DR PO SCH ×2 (11:38→21:35)
[2019-08-08] MEDS: AMLODIPINE BESYLATE 5 MG TAB PO SCH (11:39)
[2019-08-08] MEDS: POTASSIUM CHLORIDE 20MEQ/100ML 100 ML IV PRN (14:59)
[2019-08-08] MEDS: INSULIN GLARGINE 100 UNITS/ML 10 ML VIAL SQ SCH (21:50)
[2019-08-09 03:38] VITALS: BP 152/72
[2019-08-09] MEDS: LACTATED RINGERS 1000ML 1,000 ML IV SCH (03:40)
[2019-08-09] MEDS: ONDANSETRON HCL 4 MG/2 ML VIAL IVP SCH ×3 (03:45→10:44)
[2019-08-09] MEDS: INSULIN HUMULIN R 100 UNIT/ML 3ML SQ SCH (05:33)
[2019-08-09 05:49] LABS: CREATININE 2.1 mg/dL (0.5-1.5); MAGNESIUM 1.9 mg/dL (1.80-2.40)
[2019-08-09 06:06] LABS: POTASSIUM 2.8 mmol/L (3.5-5.1)
--- NOTE | 2019-08-09 06:35 | NUR ---
0605: PATIENT'S POTASSIUM LEVEL AT 2.8, PATIENT ON POTASSIUM PROTOCAL. 0635: PATIENT GIVEN KDUR 20 MEQ PO, INFORMED HER THAT SHE WOULD BE RECEIVING 3 MORE DOSES.
[2019-08-09] MEDS: METOCLOPRAMIDE 10 MG/2 ML VIAL IVP SCH ×2 (06:47→10:44)
[2019-08-09] MEDS: POTASSIUM CHLORIDE 20 MEQ ERTAB PO PRN (06:47)
[2019-08-09 08:50] VITALS: BP 150/84
[2019-08-09] MEDS: ENOXAPARIN SODIUM 30 MG/0.3 ML SQ SCH (09:00)
[2019-08-09] MEDS ORDERED: CYANOCOBALAMIN (VITAMIN B-12) 1,000 MCG TABLET PO SCH (09:00)
[2019-08-09] MEDS: PANTOPRAZOLE SODIUM 40 MG TABLET.DR PO SCH (10:33)
[2019-08-09] MEDS: AMLODIPINE BESYLATE 5 MG TAB PO SCH (10:33)
[2019-08-09] MEDS: ASCORBIC ACID 500 MG TAB PO SCH (10:33)
[2019-08-09] MEDS: FOLIC ACID/VITAMIN B COMP W-C 1 CAP TAB PO SCH (10:33)
[2019-08-09] MEDS: LIDOCAINE HCL-MPF 1% 2ML VIAL IV PRN ×2 (10:34→16:50)
[2019-08-09] MEDS: POTASSIUM CHLORIDE 20MEQ/100ML 100 ML IV PRN ×2 (10:34→16:40)
[2019-08-09 11:30] VITALS: BP 159/93
--- NOTE | 2019-08-09 15:44 | NUR ---
RD FOLLOW UP NOTE Pt is s/p EGD revealing Duodenitis, Gastritis as per EMR. Reglan and Zofran in place. Pt with Fair PO intake. GI Soft/[place], 75gm CCD. Recommend Ensure Clear QD. RD to continue to monitor. Please notify RD as additional nutrition concerns arise. Thank you. Addendum: 08/09/19 at [address] Amended: Links added.
[2019-08-09 16:11] LABS: MAGNESIUM 1.6 mg/dL (1.80-2.40); POTASSIUM 3.2 mmol/L (3.5-5.1)
[2019-08-09 16:24] VITALS: BP 148/86
[2019-08-09] MEDS: MAGNESIUM 2GM PREMIX 50ML 50 ML IV SCH (17:00)
--- NOTE | 2019-08-09 18:19 | NUR ---
PT WANTS TO LEAVE AMA POTASSIUM AND MAGNESIUM COVERED, PATIENT NOW STATES THAT NOW SHE WANT TO LEAVE AMA. SHE STATES SHE FEELS PERFECTLY FINE. SHE WAS INFORMED THAT DUE TO POTASSIUM LEVEL SEVERELY LOW, SHE STATES THAT SHE DOES NOT CARE AND THAT SHE UNDERSTAND THE IMPLICATIONS OF THE POTASSIUM LEVEL, AND STATES SHE WILL STILL GO HOME AND THAT SHE WILL EAT BANANAS AT HOME.
--- NOTE | 2019-08-09 18:20 | NUR ---
PATIENT ADVISED PRIOR TO SIGNING AMA FORM PATIENT WAS ADVISED PRIOR TO SIGNING AMA FORM OF THE IMPLICATIONS OF LEAVING AGAINST MEDICAL ADVISE AND SHE STATED I FEEL FINE, I AM NOT EATING HERE BECAUSE I DONT LIKE THE FOOD I WILL START EATING AT HOME. PATIENT WAS INFORMED THAT HER KIDNEYS ARE NOT FULLY RECOVERED AND THAT SHE WOULD BENEFIT FROM MORE ELECTROLYTE REPLACEMENTS TO BRING K AND MAG TO A WNL AND TO HELP KIDNEYS FUNCTION ADEQUATELY. SHE WAS ALSO INFORM THAT IF SHE LEAVES HER KIDNEYS MAY WORSEN AND SHE MAY REQUIRE DIALYSIS AGAIN. 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 SHE STATES I KNOW BUT I AM TIRED AND I FEEL FINE AND I AM NOT STAYING HERE ANOTHER DAY, IF SOMETHING HAPPENS TO ME I AM RESPONSIBLE FOR IT NOT YOU. IV CATHETER WAS DISCONTINUE, INTACT, NO BLEEDING. NO TELE. PATIENT WAS ACCOMPANIED BY TAMIA OTERO. PATIENT STATED FAMILY IS DOWN STAIRS. PATIENT WAS INSTRUCTED THAT IF SHE FEELS BAD SHE MAY ALWAYS COME BACK OR TO CALL HER PRIMARY DOCTOR. SHE SAID OKAY I WILL DO THAT THANKS.
--- NOTE | 2019-08-09 18:23 | NUR ---
DR. RODRIGUEZ AWARE OF PT LEAVING AMA STATES OKAY.
--- NOTE | 2019-08-09 18:25 | NUR ---
PT SIGNED AMA FORM IV OUT, INTACT, NO BLEEDING. STATES HER RIDE IS DOWN IN THE ER.
== END 2019-08-09 18:15 | disposition left against medical advice (07) | DRG 853 ==
LOC: EDH 18:49 → EDHIP 18:50 → OBSVTOIN 18:50 → 4DH 07-15 08:18 → 3DH 07-22 20:13
PROVIDERS: ADMIT Internal Medicine; ATTEND Internal Medicine
PROC: 0J990ZZ Drainage of Buttock Subcutaneous Tissue and Fascia, Open Approach (ICD-10-PCS; principal; 2019-07-14)
PROC: 5A1D70Z Performance of Urinary Filtration, Intermittent, Less than 6 Hours Per Day (ICD-10-PCS; 2019-07-23)
PROC: 0JH63XZ Insertion of Tunneled Vascular Access Device into Chest Subcutaneous Tissue and Fascia, Percutaneous Approach (ICD-10-PCS; 2019-07-24)
PROC: 02H633Z Insertion of Infusion Device into Right Atrium, Percutaneous Approach (ICD-10-PCS; 2019-07-24)
PROC: B548ZZA Ultrasonography of Superior Vena Cava, Guidance (ICD-10-PCS; 2019-07-24)
PROC: 5A1D70Z Performance of Urinary Filtration, Intermittent, Less than 6 Hours Per Day (ICD-10-PCS; 2019-07-24)
PROC: 5A1D70Z Performance of Urinary Filtration, Intermittent, Less than 6 Hours Per Day (ICD-10-PCS; 2019-07-25)
PROC: 5A1D70Z Performance of Urinary Filtration, Intermittent, Less than 6 Hours Per Day (ICD-10-PCS; 2019-07-27)
PROC: 5A1D70Z Performance of Urinary Filtration, Intermittent, Less than 6 Hours Per Day (ICD-10-PCS; 2019-07-29)
PROC: 0DB98ZX Excision of Duodenum, Via Natural or Artificial Opening Endoscopic, Diagnostic (ICD-10-PCS; 2019-08-08)
PROC: 0DB68ZX Excision of Stomach, Via Natural or Artificial Opening Endoscopic, Diagnostic (ICD-10-PCS; 2019-08-08)
DX: A41.9 Sepsis, unspecified organism (principal); K85.90 Acute pancreatitis without necrosis or infection, unspecified; N18.6 End stage renal disease; L02.31 Cutaneous abscess of buttock; E87.1 Hypo-osmolality and hyponatremia; N39.0 Urinary tract infection, site not specified; E87.2 Acidosis; J90 Pleural effusion, not elsewhere classified; L03.90 Cellulitis, unspecified; I12.0 Hypertensive chronic kidney disease with stage 5 chronic kidney disease or end stage renal disease; N12 Tubulo-interstitial nephritis, not specified as acute or chronic; N17.9 Acute kidney failure, unspecified; E11.65 Type 2 diabetes mellitus with hyperglycemia; R82.71 Bacteriuria; D64.9 Anemia, unspecified; E11.22 Type 2 diabetes mellitus with diabetic chronic kidney disease; E11.40 Type 2 diabetes mellitus with diabetic neuropathy, unspecified; E66.9 Obesity, unspecified; D69.6 Thrombocytopenia, unspecified; D70.9 Neutropenia, unspecified; E83.42 Hypomagnesemia; E87.6 Hypokalemia; G47.00 Insomnia, unspecified; K29.70 Gastritis, unspecified, without bleeding; K29.80 Duodenitis without bleeding; K59.00 Constipation, unspecified; G89.29 Other chronic pain; Z99.2 Dependence on renal dialysis; Z68.34 Body mass index [BMI] 34.0-34.9, adult; Z74.01 Bed confinement status; Z90.710 Acquired absence of both cervix and uterus; Z90.49 Acquired absence of other specified parts of digestive tract; Z86.14 Personal history of Methicillin resistant Staphylococcus aureus infection; Z79.84 Long term (current) use of oral hypoglycemic drugs; Z83.3 Family history of diabetes mellitus; Z82.49 Family history of ischemic heart disease and other diseases of the circulatory system
CPT/HCPCS: 36415; 36558; 36589; 43239; 70450; 71045; 74018; 74176; 74177; 74181; 76770; 77001; 78264; 80048; 80053; 80061; 80074; 80076; 80202; 81001; 82150; 82550; 82728; 82948; 82977; 83036; 83540; 83550; 83605; 83690; 83735; 83874; 83935; 84100; 84145; 84300; 84484; 84550; 85025; 85027; 85610; 85730; 86140; 86701; 86704; 86706; 87040; 87070; 87076; 87077; 87088; 87186; 87205; 87340; 87390; 87520; 87804; 90935; 93005; A4606; A6250; A9541; C1750; G0378; J1642; J1644; J1650; J1815; J2060; J2250; J2270; J2405; J2543; J2550; J2704; J2765; J3370; J3475; J3480; J3490; J7030; J7120; Q0162; Q0163; Q9963; Q9967

== ENCOUNTER 2019-08-10 07:01 | Emergency (ER) | payer OTHER ==
[~2019-08-10 07:01] MED LIST: METF-526 PO
[2019-08-10 07:50] LABS: HEMATOCRIT 33.3 % (36-48); LYMPHOCYTES % (AUTO) 27.7 % (21.0-51.0); MEAN CORPUSCULAR HGB CONC 33.9 g/dL (32.0-36.0); MEAN CORPUSCULAR VOLUME 79.5 fL (79-99); MONOCYTES % (AUTO) 10.8 % (3.0-13.0); NEUTROPHILS % (AUTO) 47.2 % (40.0-77.0); PLATELET COUNT (AUTO) 158 K/uL (130-400); RED BLOOD CELL COUNT(AUTO) 4.19 MIL/uL (4.00-5.50); RED CELL DISTRIBUTION WIDTH 12.8 % (11.0-15.5); WHITE BLOOD COUNT (AUTO) 6.2 K/uL (4.8-10.8)
[2019-08-10 08:04] LABS: POTASSIUM 3.1 mmol/L (3.5-5.1)
[2019-08-10] MEDS ORDERED: POTASSIUM CHLORIDE 20 MEQ ERTAB PO ONE (08:39)
== END 2019-08-10 09:15 | disposition home or self-care (01) ==
LOC: EDH 07:01
DX: E87.6 Hypokalemia (principal); E11.9 Type 2 diabetes mellitus without complications; Z79.899 Other long term (current) drug therapy
CPT/HCPCS: 36415; 80048; 85025

== ENCOUNTER 2022-05-26 12:34 | Emergency (ER) | payer BC, MEDICAID ==
[~2022-05-26] VITALS: Ht 165.1 cm; Wt 86.2 kg
[2022-05-26 12:55] LABS: BASOPHILS % (AUTO) 0.5 % (0.0-5.0); EOSINOPHILS % (AUTO) 3.3 % (0.0-8.0); HEMATOCRIT 36.7 % (36-48); LYMPHOCYTES % (AUTO) 39.8 % (21.0-51.0); MEAN CORPUSCULAR HGB CONC 33.8 g/dL (32.0-36.0); MONOCYTES % (AUTO) 5.6 % (3.0-13.0); NEUTROPHILS % (AUTO) 50.5 % (40.0-77.0); PLATELET COUNT (AUTO) 257 K/uL (130-400); RED BLOOD CELL COUNT(AUTO) 4.59 MIL/uL (4.00-5.50); RED CELL DISTRIBUTION WIDTH 13.2 % (11.0-15.5); WHITE BLOOD COUNT (AUTO) 7.5 K/uL (4.8-10.8)
[2022-05-26] MEDS ORDERED: ASPIRIN 81MG CHEW TAB PO ONE (13:00)
[2022-05-26 13:04] LABS: POTASSIUM 3.7 mmol/L (3.5-5.1)
[2022-05-26 13:08] LABS: ALBUMIN 3.1 g/dL (3.5-5.0); TOTAL PROTEIN, SERUM 6.9 g/dL (6.0-8.3)
[2022-05-26] MEDS ORDERED: DOPAMINE 800MG/D5 250ML 250 ML IV PRN (15:00)
[2022-05-26 15:57] VITALS: BP 135/79
== END 2022-05-26 16:01 | disposition home or self-care (01) ==
LOC: EDH 12:34
DX: R07.89 Other chest pain (principal); J45.909 Unspecified asthma, uncomplicated; E11.9 Type 2 diabetes mellitus without complications; M79.7 Fibromyalgia; Z79.84 Long term (current) use of oral hypoglycemic drugs
CPT/HCPCS: 36415; 71045; 80053; 84484; 85025; 93005

== ENCOUNTER 2022-12-21 21:40 | Emergency (ER) | payer BC ==
[~2022-12-21] VITALS: Ht 165.1 cm; Wt 94.3 kg
[2022-12-21 22:50] LABS: SARS-CoV-2, RNA, NAAT POSITIVE SARS CoV-2 (NEGATIVE)
[2022-12-21 22:54] LABS: BASOPHILS # (AUTO) 0.05 K/uL (0.00-0.20); BASOPHILS % (AUTO) 0.6 % (0.0-5.0); EOSINOPHILS # (AUTO) 0.14 K/uL (0.00-0.70); EOSINOPHILS % (AUTO) 1.7 % (0.0-8.0); HEMATOCRIT 41.4 % (36-48); IMMATURE GRANULOCYTE ABSOLUTE 0.04 K/uL (0-1); LYMPHOCYTES # (AUTO) 2.3 K/uL (1.0-4.8); LYMPHOCYTES % (AUTO) 28.2 % (21.0-51.0); MEAN CORPUSCULAR HEMOGLOBIN 27.4 pg (27.0-33.0); MEAN CORPUSCULAR HGB CONC 33.8 g/dL (32.0-36.0); MONOCYTES # (AUTO) 0.5 K/uL (0.1-1.0); MONOCYTES % (AUTO) 6.1 % (3.0-13.0); NEUTROPHILS # (AUTO) 5.2 K/uL (1.8-7.7); NEUTROPHILS % (AUTO) 62.9 % (40.0-77.0); PLATELET COUNT (AUTO) 279 K/uL (130-400); RED BLOOD CELL COUNT(AUTO) 5.11 MIL/uL (4.00-5.50); RED CELL DISTRIBUTION WIDTH 13.2 % (11.0-15.5); WHITE BLOOD COUNT (AUTO) 8.3 K/uL (4.8-10.8)
[2022-12-21 22:58] LABS: INFLUENZA TYPE A Negative For Type A (NEGATIVE); INFLUENZA TYPE B Negative For Type B (NEGATIVE)
[2022-12-21 23:05] LABS: CREATININE 1.3 mg/dL (0.5-1.5); POTASSIUM 3.9 mmol/L (3.5-5.1)
[2022-12-21 23:11] LABS: APPEARANCE,URINE CLEAR (CLEAR); BILIRUBIN,URINE NEGATIVE (NEGATIVE); GLUCOSE, URINE (UA) >=1000 mg/dL (NEGATIVE); KETONES,URINE NEGATIVE (NEGATIVE); LEUKOCYTE ESTERASE ,URINE NEGATIVE Leu/uL (NEGATIVE); NITRATE,URINE NEGATIVE (NEGATIVE); OCCULT BLOOD,URINE NEGATIVE (NEGATIVE); PH,URINE 5.5 (5.0-8.0); PROTEIN,URINE NEGATIVE (NEGATIVE); UROBILINOGEN,URINE 0.2 mg/dL (0.2-1.0)
[2022-12-21 23:11] LABS: ALBUMIN 3.5 g/dL (3.5-5.0); BILIRUBIN,TOTAL 0.6 mg/dL (0.2-1.0); TOTAL PROTEIN, SERUM 8.1 g/dL (6.0-8.3)
[2022-12-21 23:12] LABS: ADD UA MICROSCOPIC YES; COLOR,URINE Light-Yellow (YELLOW)
[2022-12-21 23:13] LABS: MUCUS,URINE RARE LPF (None Seen); SQUAMOUS EPITHELIAL CELL,UR FEW /HPF (0-2); WBC,URINE 0-1 /HPF (0-1); YEAST,URINE BUDDING FEW /HPF (None Seen)
[2022-12-21] MEDS ORDERED: 0.9%NACL 1000ML 2,000 ML IV ONE (23:30)
[2022-12-22] MEDS ORDERED: OMEP40CA21 PO (00:11)
[2022-12-22] MEDS ORDERED: ONDA-104 PO (00:11)
[2022-12-22] MEDS ORDERED: IBUP-1493 PO (00:11)
[2022-12-22 00:13] VITALS: BP 133/71; PULSE 80; RESP 18; O2SAT 97
== END 2022-12-22 00:25 | disposition home or self-care (01) ==
LOC: EDH 21:40
DX: U07.1 COVID-19 (principal); J45.909 Unspecified asthma, uncomplicated; E11.9 Type 2 diabetes mellitus without complications; I10 Essential (primary) hypertension; Z79.84 Long term (current) use of oral hypoglycemic drugs; Z90.49 Acquired absence of other specified parts of digestive tract
CPT/HCPCS: 99284; 96360; 71045; 87635; 84484; 80053; 83880; 85025; 87040 ×2; 87804 ×2; 83605; 81001; 36415; 93005; C9803; J7030

== ENCOUNTER 2023-04-11 08:49 | Emergency (ER) | payer BC ==
[~2023-04-11] VITALS: Ht 165.1 cm; Wt 86.2 kg
[~2023-04-11 08:49] MED LIST changes: +IBUP-1493 PO; +OMEP40CA21 PO; +ONDA-104 PO
[2023-04-11 09:17] LABS: RAPID GROUP A STREP negative (NEGATIVE)
[2023-04-11 09:20] LABS: SARS-CoV-2, RNA, NAAT NEGATIVE SARS CoV-2 (NEGATIVE)
[2023-04-11] MEDS ORDERED: KETOROLAC 30MG VIAL (30MG/ML) IM ONE (09:30)
[2023-04-11 09:41] LABS: INFLUENZA TYPE A POSITIVE FOR TYPE A (NEGATIVE); INFLUENZA TYPE B NEGATIVE FOR TYPE B (NEGATIVE)
[2023-04-11] MEDS ORDERED: OSEL75 PO (10:06)
[2023-04-11] MEDS ORDERED: IBUP-2070 PO (10:06)
[2023-04-11 10:15] VITALS: BP 141/80; PULSE 78; RESP 16; O2SAT 97
== END 2023-04-11 10:17 | disposition home or self-care (01) ==
LOC: EDH 08:49
DX: J10.1 Influenza due to other identified influenza virus with other respiratory manifestations (principal); H92.03 Otalgia, bilateral; Z20.822 Contact with and (suspected) exposure to COVID-19
CPT/HCPCS: 99284; 87635; 87880; 87804 ×2; 96372; C9803; J1885

== ENCOUNTER → 2023-08-30 | Emergency (ER) | payer BC ==
[~2023-08-30] VITALS: Ht 165.1 cm; Wt 91.2 kg
[~2023-08-30] MED LIST changes: +0.9%NACL 1000ML 1,710 ML IV ONE; +IBUP-2070 PO; +INSULIN HUMULIN R 100 UNIT/ML 3ML IV ONE; +OSEL75 PO; +ZOSYN 3.375GM +NS 50ML IVPB ONE
[2023-08-30 13:01] VITALS: O2SAT 100
[2023-08-30 13:09] VITALS: BP 141/78; PULSE 74; RESP 18
[2023-08-30 14:18] LABS: BASOPHILS # (AUTO) 0.05 K/uL (0.00-0.20); BASOPHILS % (AUTO) 0.7 % (0.0-5.0); EOSINOPHILS # (AUTO) 0.14 K/uL (0.00-0.70); HEMATOCRIT 39.8 % (36-48); IMMATURE GRANULOCYTE ABSOLUTE 0.03 K/uL (0-1); LYMPHOCYTES # (AUTO) 2.3 K/uL (1.0-4.8); LYMPHOCYTES % (AUTO) 32.9 % (21.0-51.0); MEAN CORPUSCULAR HEMOGLOBIN 27.4 pg (27.0-33.0); MEAN CORPUSCULAR HGB CONC 33.9 g/dL (32.0-36.0); MEAN CORPUSCULAR VOLUME 80.9 fL (79-99); MONOCYTES # (AUTO) 0.3 K/uL (0.1-1.0); MONOCYTES % (AUTO) 4.2 % (3.0-13.0); NEUTROPHILS # (AUTO) 4.2 K/uL (1.8-7.7); NEUTROPHILS % (AUTO) 59.8 % (40.0-77.0); PLATELET COUNT (AUTO) 268 K/uL (130-400); RED BLOOD CELL COUNT(AUTO) 4.92 MIL/uL (4.00-5.50); WHITE BLOOD COUNT (AUTO) 6.9 K/uL (4.8-10.8)
[2023-08-30 14:39] LABS: ALBUMIN 3.4 g/dL (3.5-5.0); BILIRUBIN,TOTAL 0.4 mg/dL (0.2-1.0); CREATININE 1.5 mg/dL (0.5-1.0); POTASSIUM 4.4 mmol/L (3.5-5.1); TOTAL PROTEIN, SERUM 7.8 g/dL (6.0-8.3)
== END ==
LOC: EDH 12:32
DX: E11.65 Type 2 diabetes mellitus with hyperglycemia (principal); J45.909 Unspecified asthma, uncomplicated; M79.7 Fibromyalgia; I10 Essential (primary) hypertension; Z79.1 Long term (current) use of non-steroidal anti-inflammatories (NSAID); Z79.84 Long term (current) use of oral hypoglycemic drugs; Z79.899 Other long term (current) drug therapy; Z90.49 Acquired absence of other specified parts of digestive tract; Z90.710 Acquired absence of both cervix and uterus
CPT/HCPCS: 36415; 80053; 83605; 85025; 87040

== ENCOUNTER 2024-05-09 10:28 | Emergency (ER) | payer BC ==
[~2024-05-09] VITALS: Ht 165.1 cm; Wt 95.3 kg
[~2024-05-09 10:28] MED LIST changes: -0.9%NACL 1000ML 1,710 ML IV ONE; -INSULIN HUMULIN R 100 UNIT/ML 3ML IV ONE; -ZOSYN 3.375GM +NS 50ML IVPB ONE
--- NOTE | 2024-05-09 10:40 | EKG ---
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
[2024-05-09] MEDS: LACTATED RINGERS 1000ML 1,000 ML IV ONE (10:51)
[2024-05-09 10:53] LABS: BASOPHILS # (AUTO) 0.05 K/uL (0.00-0.20); BASOPHILS % (AUTO) 0.6 % (0.0-5.0); EOSINOPHILS # (AUTO) 0.23 K/uL (0.00-0.70); EOSINOPHILS % (AUTO) 2.8 % (0.0-8.0); HEMATOCRIT 36.8 % (36-48); IMMATURE GRANULOCYTE ABSOLUTE 0.02 K/uL (0-1); LYMPHOCYTES # (AUTO) 2.5 K/uL (1.0-4.8); LYMPHOCYTES % (AUTO) 30.4 % (21.0-51.0); MEAN CORPUSCULAR HEMOGLOBIN 27.1 pg (27.0-33.0); MEAN CORPUSCULAR HGB CONC 33.2 g/dL (32.0-36.0); MEAN CORPUSCULAR VOLUME 81.6 fL (79-99); MONOCYTES # (AUTO) 0.5 K/uL (0.1-1.0); MONOCYTES % (AUTO) 6.2 % (3.0-13.0); NEUTROPHILS # (AUTO) 4.9 K/uL (1.8-7.7); NEUTROPHILS % (AUTO) 59.8 % (40.0-77.0); PLATELET COUNT (AUTO) 267 K/uL (130-400); RED BLOOD CELL COUNT(AUTO) 4.51 MIL/uL (4.00-5.50); RED CELL DISTRIBUTION WIDTH 13.4 % (11.0-15.5); WHITE BLOOD COUNT (AUTO) 8.2 K/uL (4.8-10.8)
--- NOTE | 2024-05-09 10:53 | ERN ---
General Chief Complaint: Chest Pain Stated Complaint: CP Time Seen by MD: 10:30 History of Present Illness Initial Comments Ms. Domingo is a 53-year-old female with past medical history of renal disease, diabetes mellitus, asthma, depression was brought to the ER by her daughter due to complaints of numbness to her lift hand that radiated to her left shoulder blade, left jaw and chest since 45 minutes, describes the pain as dull, pressure-like sensation located in the mid sternal area. Rates the pain as a 9/10. No aggravating or relieving factors. There is associated shortness of breath, mild nausea and headache. No dizziness or palpitations. Currently not on any blood thinners. History of quadruple bypass in father. Denies any recent change or stressors. Denies smoking, alcohol or drugs. HEART score is 3. She took pioglitazone this morning but missed her insulin shot. Allergies: Coded Allergies: No Known Drug Allergies (Unverified Allergy, Unknown, 08/28/17) Home Meds Active Scripts Ibuprofen (Ibuprofen) 600 Mg Tablet, 600 MG PO Q6H PRN for PAIN, #12 TAB 0 Refills Prov:LAN SILVA NP 04/11/23 Oseltamivir Phosphate (Tamiflu) 75 Mg Cap, 75 MG PO BID for 5 Days, #10 CAP Prov:LAN SILVA NP 04/11/23 Omeprazole (Omeprazole) 40 Mg Capsule.dr, 40 MG PO DAILY, #30 CAP Prov:FLIP LOPEZ MD 12/22/22 Ibuprofen (Motrin/Advil) 800 Mg Tab, 800 MG PO TID, #30 TAB Prov:FLIP LOPEZ MD 12/22/22 Ondansetron HCl (Ondansetron HCl) 4 Mg Tablet, 4 MG PO TIDP PRN for VOMITING, #20 TAB Prov:FLIP LOPEZ MD 12/22/22 Reported Medications Metformin HCl (Metformin HCl ER) 500 Mg Tab.er.24, 500 MG PO BID 07/15/19 Past Medical History Past Medical History: Asthma, Diabetes-Type II Medical History Other: FIBROMYALSIA, KIDNEY DISEASE Past Surgical History: Hysterectomy, Cholecystectomy, Social History Social History: Negative ROS Dictation Constitutional: No appetite loss, No fevers, chills , No night sweats, No weakness, fatigue Eye: No vision change, No redness, pain or discharge ENT: No hearing loss, ear pain or discharge, No nose bleeds, No sore throat, Neck: No swelling. pain or stiffness Respiratory: Mild shortness of breath, no cough, wheezing Cardiovascular: Chest pain, dyspnea, no edema Gastrointestinal: Generalized abdominal pain with nausea, no vomiting, No diarrhea, constipation Genitourinary: No painful urination, No blood in urine, No urinary incontinence, No frequency or urgency Musculoskeletal: No joint pain, muscle pain, swelling or stiffness Neurological: Numbness in left arm, tingling, No weakness, tremors or seizures Psychiatric: : Depression, No anxiety, No sleep disturbance, No Memory changes Lymphatic: No easy bruising, No bleeding tendencies , No swollen lymph nodes A 13-point Review of Systems was assessed, all of which are negative except for HPI or as indicated above. Physical Exam Physical Exam Dictation General: Alert & Oriented, in moderate distress EENT: No conjunctival redness or discharge noted Tympanic membranes are clear, Normal hearing, Oral mucosa is moist, No pharyngeal erythema, No nasal discharge, No oral lesions. Neck: Non-tender, No jugular vein distention, No lymphadenopathy, No thyromegaly, Supple. Respiratory: Lungs are clear to auscultation, Respirations are non-labored, Breath sounds are equal, No chest wall tenderness, _. Cardiovascular: Normal rate, Normal rhythm, No murmur, Good pulses equal in all extremities, Normal peripheral perfusion, No edema. Gastrointestinal: Soft, Non-distended, Normal bowel sounds, No organomegaly, _. Musculoskeletal: Normal range of motion, Normal strength, No tenderness, No swelling, No deformity, Normal gait. Integumentary: Warm, Dry, [place], Intact, No pallor, No rash. Neurologic: Alert, Oriented x4, Normal sensory, No focal defects Psychiatric: Cooperative, Appropriate mood & affect, Normal judgement, Non- suicidal. Results Laboratory and Microbiology Lab and Micro Result Laboratory Tests Test 05/09/24 09:34 05/09/24 10:45 05/09/24 11:50 05/09/24 12:03 Urine Color LIGHT-YELLOW (YELLOW) Urine Appearance CLEAR (CLEAR) Urine pH 5.5 (5.0-8.0) Urine Specific [place] 1.032 (1.001-1.031) Urine Protein 30 mg/dL (NEGATIVE) H Urine Glucose (UA) >=1000 mg/dL (NEGATIVE) H Urine Ketones NEGATIVE mg/dL (NEGATIVE) Urine Occult Blood NEGATIVE (NEGATIVE) Urine Nitrate NEGATIVE (NEGATIVE) Urine Bilirubin NEGATIVE mg/dL (NEGATIVE) Urine Urobilinogen 0.2 mg/dL (0.2-1.0) Urine Leukocyte Esterase NEGATIVE Sandi/uL Urine RBC 2-5 /HPF (0-1) H Urine WBC 0-1 /HPF (0-1) Urine Squamous Epithelial Cells MANY /HPF (0-2) Urine Bacteria FEW /HPF (None Seen) Urine Yeast FEW /HPF (None Seen) Urine Opiates Screen NEGATIVE (NEGATIVE) Urine Barbiturates Screen NEGATIVE (NEGATIVE) Urine Phencyclidine Screen NEGATIVE (NEGATIVE) Urine Amphetamines Screen NEGATIVE (NEGATIVE) Urine Benzodiazepines Screen NEGATIVE (NEGATIVE) Urine Cocaine Screen NEGATIVE (NEGATIVE) Urine Marijuana (THC) Screen NEGATIVE (NEGATIVE) White Blood Count 8.2 K/uL (4.8-10.8) Red Blood Count 4.51 MIL/uL (4.00-5.50) Hemoglobin 12.2 g/dL (12.0-16.0) Hematocrit 36.8 % (36-48) Mean Corpuscular Volume 81.6 fL (79-99) Mean Corpuscular Hemoglobin 27.1 pg (27.0-33.0) Mean Corpuscular Hemoglobin Concent 33.2 g/dL (32.0-36.0) Red Cell Distribution Width 13.4 % (11.0-15.5) Platelet Count 267 K/uL (130-400) Mean Platelet Volume 11.0 fL (7.5-10.5) H Immature Granulocyte % (Auto) 0.2 % (0-1) Neutrophils (%) (Auto) 59.8 % (40.0-77.0) Lymphocytes (%) (Auto) 30.4 % (21.0-51.0) Monocytes (%) (Auto) 6.2 % (3.0-13.0) Eosinophils (%) (Auto) 2.8 % (0.0-8.0) Basophils (%) (Auto) 0.6 % (0.0-5.0) Neutrophils # (Auto) 4.9 K/uL (1.8-7.7) Lymphocytes # (Auto) 2.5 K/uL (1.0-4.8) Monocytes # (Auto) 0.5 K/uL (0.1-1.0) Eosinophils # (Auto) 0.23 K/uL (0.00-0.70) Basophils # (Auto) 0.05 K/uL (0.00-0.20) Absolute Immature Granulocyte (auto 0.02 K/uL (0-1) Nucleated Red Blood Cells 0.0 % (0.0-0.19) Prothrombin Time 10.3 SEC (9.6-11.6) Prothromb Time International Ratio <= 0.93 (0.85-1.15) Activated Partial Thromboplast Time 28.0 SEC (26.3-35.5) Sodium Level 135 mmol/L (136-145) L Potassium Level 4.5 mmol/L (3.5-5.1) Chloride Level 100 mmol/L (101-111) L Carbon Dioxide Level 29 mmol/L (21-32) Blood Urea Nitrogen 22 mg/dL (7-18) H Creatinine 1.3 mg/dL (0.5-1.0) H Glomerular Filtration Rate Calc 49 mL/min (>90) Random Glucose 364 mg/dL (70-105) H Total Calcium 9.3 mg/dL (8.5-10.1) Magnesium Level 1.70 mg/dL (1.80-2.40) L Total Creatine Kinase 51 U/L (21-232) # Troponin I High Sensitivity < 4 ng/L (4-50) L B-Type Natriuretic Peptide 51 pg/mL (0-100) Lipase 24 U/L (16-77) Whole Blood Ketones Quantitative 0.2 mmol/L (0.0-0.6) Blood Gas Specimen Type Venous Arterial Blood Oxygen Saturation 50.1 % (94.0-98.0) L Venous Blood pH 7.387 (7.320-7.430) Venous Blood pCO2 at Patient Temp 44 (38-54) Venous Blood pO2 at Patient Temp 27.4 mmHg (23.0-48.0) Venous Blood HCO3 26.1 (22.0-29.0) Venous Blood Base Excess 0.7 (-2.0-3.0) Blood Gas Temperature 37.0 CELSIUS (35.5-37.0) Blood Gas Vent Mode RA (ROOM AIR) FiO2 21.0 % Blood Gas Specimen Comment JUAN ANTONIO MCKEON Test 05/09/24 12:59 Troponin I High Sensitivity < 4 ng/L (4-50) L EKG/XRAY/US/CT/MRI EKG Comment 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 The patient will be monitored closely throughout the emergency department stay. The disposition will depend on the workup results and frequent re-evaluations MDM: Rationale: Tests considered and ordered secondary to shared decision making include: CBC, CMP, Urinalysis,, ECG and radiology Previous outside records reviewed: Old ER visits. Risk of complication and/or morbidity or mortality of patient management: None Medications-Per medication reconciliation Need for hospitalization: Patient does meet criteria for hospitalization. Need for emergency major/minor surgery: No There are no social concerns with this patient. Prescription drug management Prescriptions will include symptomatic care Patient's prior external medical records from other ER visits were reviewed by me as indicated. Prior testing and results from previous visits were reviewed. Prior tests were taken into account with medical decision making and resource utilization, independent historian/historians were used to obtain complete medical history. I independently interpreted the test that were performed, results were reviewed by me and considered findings on radiology if ordered. Medical management and examination interpretation discussions were had by me with other qualified healthcare professionals as indicated for the patient's care. ED Course Orders Procedure Category Date Status Time Cbc With Differential LAB 05/09/24 Complete 10:30 Prothrombin Time With LAB 05/09/24 Complete INR 10:30 B-Type Natriuretic LAB 05/09/24 Complete Peptide 10:30 Chest 1vw RAD 05/09/24 Resulted 10:30 12 Lead Ekg Tracing- EKG 05/09/24 Complete Technical 10:30 Lactated Ringers PHA 05/09/24 Complete 1000ml (Lactated 10:30 Magnesium LAB 05/09/24 Complete 10:30 Creatine Kinase, Total LAB 05/09/24 Complete 10:30 Troponin I High LAB 05/09/24 Complete Sensitivity 10:30 Urinalysis Profile LAB 05/09/24 Complete 10:30 Partial LAB 05/09/24 Complete Thromboplastin Time 10:30 Basic Metabolic Panel LAB 05/09/24 Complete 10:30 Drug Screen Urine LAB 05/09/24 Complete 10:30 Aspirin 325mg Tab PHA 05/09/24 Complete (Aspirin 325mg Tab) 11:00 Ondansetron 4mg Inj PHA 05/09/24 Complete (Zofran 4mg Inj) 11:30 Morphine 2mg Syg PHA 05/09/24 Complete (Morphine 2mg Syg) 11:30 Magnesium 2gm Premix PHA 05/09/24 Complete 50ml (Magnesium 2gm 11:30 Ketone Blood LAB 05/09/24 Complete Quantitative 11:37 Lipase LAB 05/09/24 Complete 11:37 Venous Blood Gas LAB 05/09/24 Complete 12:03 Venous Blood Gas RT 05/09/24 Transmitted 12:05 Troponin I High LAB 05/09/24 Complete Sensitivity 12:40 Current Medications Medications (Trade) Dose Ordered Sig/Saul Route PRN Reason Start Time Stop Time Status Last Admin Dose Admin Aspirin (Aspirin 325mg Tab) 325 mg ONCE ONCE PO 05/09/24 11:00 05/09/24 11:06 DC 05/09/24 11:17 Lactated Ringer's 1,000 ml @ 0 mls/hr ONCE ONCE IV 05/09/24 10:30 05/09/24 10:32 DC 05/09/24 10:51 Magnesium Sulfate 50 ml @ 0 mls/hr PROTOCOL ONCE IV 05/09/24 11:30 05/09/24 11:31 DC 05/09/24 11:40 Morphine Sulfate (morPHINE 2MG SYG) 2 mg ONCE ONCE IVP 05/09/24 11:30 05/09/24 11:31 DC 05/09/24 11:21 Ondansetron HCl (zoFRAN 4MG INJ) 4 mg ONCE ONCE IVP 05/09/24 11:30 05/09/24 11:31 DC 05/09/24 11:21 Vital Signs Date Time Temp Pulse Resp B/P (MAP) Pulse Ox O2 Delivery O2 Flow Rate FiO2 05/09/24 13:01 68 12 121/63 98 Room Air* 0 21 05/09/24 10:39 78 12 158/82 100 Room Air* 0 21 DX & DISP Disposition: Discharge Departure Impression: Primary Impression: Muscle strain Additional Impressions: DM (diabetes mellitus), Dehydration Condition: Stable Referrals: LAURA HERRERA MD (PCP) Time of Disposition: 14:14 DIAMOND MERINO MD May 09, 2024 10:53 JANNIE ELLISON MD May 09, 2024 14:14
[2024-05-09 11:00] LABS: CREATININE 1.3 mg/dL (0.5-1.0); POTASSIUM 4.5 mmol/L (3.5-5.1)
[2024-05-09 11:02] LABS: INR <= 0.93 (0.85-1.15); PROTHROMBIN TIME 10.3 SEC (9.6-11.6)
[2024-05-09 11:05] LABS: MAGNESIUM 1.7 mg/dL (1.80-2.40)
[2024-05-09 11:12] LABS: B-TYPE NATRIURETIC PEPTIDE 51 pg/mL (0-100)
[2024-05-09 11:15] LABS: AMPHET/METH SCREEN,URINE NEGATIVE (NEGATIVE); BARBITURATE SCREEN, URINE NEGATIVE (NEGATIVE); BENZODIAZEPINES SCREEN,URINE NEGATIVE (NEGATIVE); CANNABINOID SCREEN,URINE NEGATIVE (NEGATIVE); COCAINE SCREEN,URINE NEGATIVE (NEGATIVE); OPIATE SCREEN,URINE NEGATIVE (NEGATIVE); PHENCYCLIDINE SCREEN,URINE NEGATIVE (NEGATIVE)
[2024-05-09] MEDS: ASPIRIN 325MG TAB PO ONE (11:17)
[2024-05-09] MEDS: morPHINE 2 MG SYG IVP ONE (11:21)
[2024-05-09] MEDS: ondanSETRON 4MG INJ IVP ONE (11:21)
[2024-05-09 11:31] LABS: APPEARANCE,URINE CLEAR (CLEAR); BILIRUBIN,URINE NEGATIVE (NEGATIVE); COLOR,URINE LIGHT-YELLOW (YELLOW); GLUCOSE, URINE (UA) >=1000 mg/dL (NEGATIVE); KETONES,URINE NEGATIVE (NEGATIVE); LEUKOCYTE ESTERASE ,URINE NEGATIVE Leu/uL (NEGATIVE); NITRATE,URINE NEGATIVE (NEGATIVE); OCCULT BLOOD,URINE NEGATIVE (NEGATIVE); PH,URINE 5.5 (5.0-8.0); UROBILINOGEN,URINE 0.2 mg/dL (0.2-1.0)
[2024-05-09 11:32] LABS: ADD UA MICROSCOPIC YES; PROTEIN,URINE 30 mg/dL (NEGATIVE)
[2024-05-09 11:34] LABS: BACTERIA,URINE FEW /HPF (None Seen); MUCUS,URINE RARE LPF (None Seen); SQUAMOUS EPITHELIAL CELL,UR MANY /HPF (0-2); WBC,URINE 0-1 /HPF (0-1); YEAST,URINE BUDDING FEW /HPF (None Seen)
[2024-05-09] MEDS: MAGNESIUM 2GM PREMIX 50ML 50 ML IV ONE (11:40)
[2024-05-09 12:04] LABS: ABG OXYGEN SATURATION 50.1 % (94.0-98.0); BASE EXCESS,VENOUS BLOOD GAS 0.7 (-2.0-3.0); DEVICE COMMENT VEN MIKE; HCO3,VENOUS BLOOD GAS 26.1 (22.0-29.0); PCO2,VENOUS BLOOD GAS 44 (38-54); PH,VENOUS BLOOD GAS 7.387 (7.320-7.430); PO2,VENOUS BLOOD GAS 27.4 mmHg (23.0-48.0); VENT MODE, BG RA (ROOM AIR)
--- NOTE | 2024-05-09 12:39 | HMCIMG ---
CHEST 1VW HISTORY: Chest pain COMPARISON: 12/21/2022 FINDINGS: A frontal projection of the chest was obtained. No acute pulmonary infiltrates is seen. The heart is borderline enlarged. Prominent interstitial markings are seen. Mild degenerative changes are seen. No evidence of aortic calcification is seen. IMPRESSION: 1. No acute pulmonary infiltrate is seen.
[2024-05-09 14:16] VITALS: BP 108/53; PULSE 66; RESP 13; TEMP 97.9; O2SAT 97
== END 2024-05-09 14:19 | disposition home or self-care (01) ==
LOC: EDH 10:28
DX: S29.011A Strain of muscle and tendon of front wall of thorax, initial encounter (principal); E86.0 Dehydration; E11.9 Type 2 diabetes mellitus without complications; J45.909 Unspecified asthma, uncomplicated; Z79.1 Long term (current) use of non-steroidal anti-inflammatories (NSAID); Z79.84 Long term (current) use of oral hypoglycemic drugs; Z79.899 Other long term (current) drug therapy; Z90.49 Acquired absence of other specified parts of digestive tract; Z90.710 Acquired absence of both cervix and uterus; X58.XXXA Exposure to other specified factors, initial encounter; Y93.89 Activity, other specified; Y92.89 Other specified places as the place of occurrence of the external cause; Y99.8 Other external cause status
CPT/HCPCS: 99284; 96365; 96375; 71045; 96366; 96361; 82550; 83735; 84484 ×2; 80048; 82803; 83880; 80305; 83690; 85025; 85610; 85730; 82010; 36415; 93005; 36600; 81001; J3475; J7120; J2270; J2405